=== PATIENT | female | born 1995 | race African-American/Black ===

== ENCOUNTER 2019-07-18 10:13 | Inpatient (IN) | payer MEDICARE ==
[~2019-07-18] VITALS: Ht 154.9 cm; Wt 60.8 kg
--- OUTSIDE RECORDS SUMMARY | 2019-07-18 10:17 | XMS REPORT ---
[facility] Address Unknown Phone Unavailable Care Team Providers Care Tie In Hand Name Role Phone UNKNOWN, REFFERING PP Unavailable RUTHY MÁRQUEZ Unavailable Unavailable DARRION GRACIA Unavailable Unavailable Elena PEREZ Unavailable Unavailable Payers Payer Name Policy Type Policy Number Effective Date Expiration Date Problems This patient has no known problems. Allergies, Adverse Reactions, Alerts Allergy Name Allergy Type Status Severity Reaction(s) Onset Date Inactive Date Treating Clinician Comments No Known Allergies DA Active U 2019-05-22 00:00:00 No Known Allergies DA Active U 2018-09-27 00:00:00 No Known Allergies DA Active U 2018-09-15 00:00:00 No Known Allergies DA Active U 2018-09-14 00:00:00 No Known Allergies DA Active U 2018-05-14 00:00:00 Medications This patient has no known medications. Encounters Start Date/Time End Date/Time Encounter Type Admission Type Attending Clinicians Care Facility Care Department Encounter ID 2019-06-30 18:37:00 2019-06-30 18:37:00 Emergency E [id number] 2017-10-25 15:07:00 2017-10-25 15:07:00 Emergency E DARRION GRACIA [facility] [id number] 2017-08-24 08:52:00 2017-08-24 08:52:00 Emergency E [facility] [id number] Results Test Description Test Time Test Comments Text Results Atomic Results Result Comments BASIC METABOLIC PANEL 2019-07-02 06:28:00 SODIUM (test code=NA) 141 MMOL/L 136-143 POTASSIUM (test code=K) 4.1 MMOL/L 3.5-5.1 CHLORIDE (test code=CL) 104 MMOL/L 98-107 CARBON DIOXIDE (test code=CO2) 26 mmol/L 24-31 GLUCOSE (test code=GLU) 100 mg/dL 70-104 BLOOD UREA NITROGEN (test code=BUN) 7.2 MG/DL 7.0-21.0 GLOMERULAR FILTRATION RATE (test code=GFR) >=60 max estimate >60 The estimated glomerular filtration rate is computed usingpatient race, age (>18), sex, and serum creatinine. If anyof the needed data elements are missing the Laboratory cannot compute an estimation of the glomerular filtration rate. CREATININE (test code=CREAT) 0.6 mg/dL 0.8-1.5 CALCIUM (test code=CA) 9.0 mg/dL 8.8-10.2 CREATINE KINASE (CK)2019-07-02 06:28:00* Test Item Value Reference Range Comments CREATINE KINASE (CK) (test code=CK) 523 U/L 24-204 CBC W/AUTO [id number] 05:59:00* Test Item Value Reference Range Comments WHITE BLOOD CELL (test code=WBC) 8.5 x10 3/uL 4.8-10.8 RED BLOOD CELL (test code=RBC) 3.63 x10 6/uL 4.20-5.40 HEMOGLOBIN (test code=HGB) 10.7 g/dL 14.5-20 HEMATOCRIT (test code=HCT) 32.1 % 37.0-47.0 MEAN CELL VOLUME (test code=MCV) 88.4 fL 81.0-99.0 MEAN CELL HGB (test code=MCH) 29.5 pg 27-31 MEAN CELL HGB CONCENTRATION (test code=MCHC) 33.3 G/DL 33-36.5 RED CELL DISTRIBUTION WIDTH (test code=RDW) 15.3 % 12.9-16.9 PLATELET COUNT (test code=PLT) 310 150-440 MEAN PLATELET VOLUME (test code=MPV) 10.2 fL 8.9-12.4 NEUTROPHIL % (test code=NT%) 51.5 % 42.2-75.2 LYMPHOCYTE % (test code=LY%) 38.4 % 20.5-51.1 MONOCYTE % (test code=MO%) 8.3 % 1.7-9.3 EOSINOPHIL % (test code=EO%) 0.7 % 0.0-7.0 BASOPHIL % (test code=BA%) 0.4 % 0-2.5 NEUTROPHIL # (test code=NT#) 4.37 x10 3/uL 1.80-7.70 LYMPHOCYTE # (test code=LY#) 3.26 x10 3/uL 1.00-4.80 MONOCYTE # (test code=MO#) 0.70 x10 3/uL 0.00-0.80 EOSINOPHIL # (test code=EO#) 0.06 x10 3/uL 0.00-0.45 BASOPHIL # (test code=BA#) 0.03 x10 3/uL 0.0-0.20 PARATHYROID [id number] 16:45:00* Test Item Value Reference Range Comments PARATHYROID HORMONE (test code=PTH) 24 pg/mL 15-65 LACTIC [id number] 12:21:00* Test Item Value Reference Range Comments LACTIC ACID (test code=LACT) 23.8 mg/dL 4.5-18.0 Critical Value reported toFirst Name:YAHIR Last Name:LUISKIM READ BACK AND VERIFIEDby PLaloLABLaloAT, on 07/01/19, @ 1221. COMPREHENSIVE METABOLIC [id number] 12:21:00* Test Item Value Reference Range Comments SODIUM (test code=NA) 140 MMOL/L 136-143 POTASSIUM (test code=K) 3.3 MMOL/L 3.5-5.1 CHLORIDE (test code=CL) 98 MMOL/L 98-107 CARBON DIOXIDE (test code=CO2) 24 mmol/L 24-31 GLUCOSE (test code=GLU) 147 mg/dL 70-104 BLOOD UREA NITROGEN (test code=BUN) 17.2 MG/DL 7.0-21.0 GLOMERULAR FILTRATION RATE (test code=GFR) 59 >60 The estimated glomerular filtration rate is computed usingpatient race, age (>18), sex, and serum creatinine. If anyof the needed data elements are missing the Laboratory cannot compute an estimation of the glomerular filtration rate. CREATININE (test code=CREAT) 1.4 mg/dL 0.8-1.5 TOTAL PROTEIN (test code=PROT) 7.2 g/dL 6.3-8.3 ALBUMIN (test code=ALB) 4.1 G/DL 3.5-5.0 CALCIUM (test code=CA) 9.1 mg/dL 8.8-10.2 BILIRUBIN TOTAL (test code=BILT) 0.6 mg/dL 0.2-1.0 SGOT/AST (test code=AST) 22 IU/L 10-34 SGPT/ALT (test code=ALT) 15 U/L 10-36 ALKALINE PHOSPHATASE (test code=ALKP) 75 U/L 32-104 [id number] 12:20:00* Test Item Value Reference Range Comments PHOSPHOROUS (test code=PHOS) 3.2 mg/dL 2.7-4.5 CBC W/AUTO [id number] 11:54:00* Test Item Value Reference Range Comments WHITE BLOOD CELL (test code=WBC) 12.7 x10 3/uL 4.8-10.8 RED BLOOD CELL (test code=RBC) 3.74 x10 6/uL 4.20-5.40 HEMOGLOBIN (test code=HGB) 10.9 g/dL 14.5-20 HEMATOCRIT (test code=HCT) 32.7 % 37.0-47.0 MEAN CELL VOLUME (test code=MCV) 87.4 fL 81.0-99.0 MEAN CELL HGB (test code=MCH) 29.1 pg 27-31 MEAN CELL HGB CONCENTRATION (test code=MCHC) 33.3 G/DL 33-36.5 RED CELL DISTRIBUTION WIDTH (test code=RDW) 15.3 % 12.9-16.9 PLATELET COUNT (test code=PLT) 316 150-440 MEAN PLATELET VOLUME (test code=MPV) 9.8 fL 8.9-12.4 NEUTROPHIL % (test code=NT%) 75.8 % 42.2-75.2 LYMPHOCYTE % (test code=LY%) 14.1 % 20.5-51.1 MONOCYTE % (test code=MO%) 9.4 % 1.7-9.3 EOSINOPHIL % (test code=EO%) 0.1 % 0.0-7.0 BASOPHIL % (test code=BA%) 0.2 % 0-2.5 NEUTROPHIL # (test code=NT#) 9.65 x10 3/uL 1.80-7.70 LYMPHOCYTE # (test code=LY#) 1.79 x10 3/uL 1.00-4.80 MONOCYTE # (test code=MO#) 1.20 x10 3/uL 0.00-0.80 EOSINOPHIL # (test code=EO#) 0.01 x10 3/uL 0.00-0.45 BASOPHIL # (test code=BA#) 0.02 x10 3/uL 0.0-0.20 - CT ABD PELVIS W/O [id number] 04:48:00Patient Name: CLEVE ALTMAN Unit No: [id number] EXAMS: CPT CODE: [id number] CT ABD PELVIS W/O CONT 29523 EXAM: - CT ABD PELVIS W/O CONT HISTORY: 23 years -old Female with sepsis TECHNIQUE: Contrast - No IV contrast was given. No oral contrast was given Noncontrast phase - abdomen and pelvis including all of kidneys Reconstructions - coronal and sagittal planes Automated exposure reduction (Auto mA/Smart mA) was utilized in compliance with ACR [employer] COMPARISON: 05/22/2019 FINDINGS: Statements: Lack of intravenous contrast compromises evaluation of abdominopelvic organs and vasculature. Lack of oral contrast compromises evaluation of bowel. Thoracic: Included images of the lower chest demonstrate no abnormalities. Hepatobiliary: The liver is normal without focal lesion. Cholecystectomy clips are present. No biliary dilation. Pancreas: Normal. Spleen: Normal. Adrenals: N ormal. Genitourinary: The kidneys are normal. There is no evidenc e of hydronephrosis of either kidney. There is no evidence of renal calculus. Evaluation of the bladder is limited, but no obvious bladder a bnormality is present. Gastrointestinal: No bowel obstruction or p erienteric inflammation. The appendix is normal. Vascular: T he aorta is grossly normal in appearance. Bones/Soft Tiss ues: No acute osseous findings. No ventral hernias. Peritoneum/Oth er: No extraluminal air. No extraluminal fluid. IMPRESSION: 1. No obstructing renal or ureteral calculi. 2. Prior ch olecystectomy. 3. Normal appendix. No evidence of bowel obstruction. No other acute abnormalities. Name: CLEVE ALTMAN [facility] Phys: Kristyn Ireland MD [address] : 1995 Age: 23 Sex: F [place] [id number] Loc: P.ERS Exam Date: 07/01/2019 Status: REG ER PH: FAX: PAGE 1 Signed Report (CO NTINUED) Patient Name: CLEVE ALTMAN Unit No: [id number] EXAMS: CPT CODE: [id number] CT ABD PELVIS W/O CONT 43620 <Continued> at 0448 Reported and signed by: BLAIR HERMAN M.D. CC: Kristyn Marin MD Technologist: Dwight Lynn CTDI: DLP: Trscr Dt/Tm: 07/01/2019 (044) by:[email or web address] Printed Date/Time: 07/01/2019 (0450) Name: CLEVE ALTMAN [facility] Phys: Kristyn Ireland MD [address] : 1995 Age: 23 Sex: [place] [address] Loc: P.ERS Exam Date: 07/01/2019 Status: REG ER PH: FAX: PAGE 2 Signed Report - XR CHEST 2 [id number] 03:38:00 Patient Name: CLEVE ALTMAN Unit No: [id number] EXAMS : CPT CODE: [id number] XR CHES T 2 V 23974 HISTORY: Sepsis Location: C3 COMPARISON:None FINDINGS: 2 views of the chest are provided. Heart size and vascularity are within norm al limits. The lungs are clear of focal consolidation. No effusion, pneumothorax, or acute osseous abnormality. IMPRESSION: 1. No focal consolidation. No other acute abnormalities. at 0338 Reported and signed by: BLAIR HERMAN M.D. CC: Kristyn Marin MD Technologist: Dwight Lynn Fluoro Time: DAP (Gy m2): Air Kerma (mGy): Trscr Dt/Tm: 07/01/2019 (033) by: [email or web address] Printed Date/Time: 07/01/2019 (0341) Name: CLEVE ALTMAN [facility] Phys: Kristyn Ireland MD [address] : 1995 Age: 23 Sex: F [place] [address] Loc: P.ERS Exam Date: 07/01/2019 Status: REG ER PH: FAX: PAGE 1 Signed Report URINALYSIS COMPLETE 2019-07-01 01:59:00* Test Item Value Reference Range Comments UA COLOR (test code=COLU) YELLOW DISCRIPT YELLOW UA APPEARANCE (test code=APPU) CLEAR DISCRIPT CLEAR UA GLUCOSE DIPSTICK (test code=DGLUU) NEGATIVE mg/dL NEGATIVE UA BILIRUBIN DIPSTICK (test code=BILU) NEGATIVE NEGATIVE UA KETONE DIPSTICK (test code=KETU) NEGATIVE mg/dL NEGATIVE UA SPECIFIC GRAVITY (test code=SGU) >=1.030 1.005-1.030 UA BLOOD DIPSTICK (test code=SARIAH) LARGE NEGATIVE UA PH DIPSTICK (test code=ERICH) 5.0 5.0-9.0 UA PROTEIN DIPSTICK (test code=PROU) 100 mg/dL NEGATIVE UA UROBILINOGEN DIPSTICK (test code=URO) 0.2 mg/dL 0.2-1.0 UA NITRITE DIPSTICK (test code=KERMIT) NEGATIVE NEGATIVE UA LEUKOCYTE ESTERASE DIPSTICK (test code=LEUU) NEGATIVE NEGATIVE UA [id number] 01:59:00* Test Item Value Reference Range Comments UA WBC (test code=WBCU) 6-10 #WBC/HPF 0-2 UA RBC (test code=RBCU) 20-30 #RBC/HPF 0-2 UA BACTERIA (test code=BACU) 4+ /HPF NONE-TRACE UA SQUAMOUS CELLS (test code=SQU) 3+ /LPF NONE-TRACE UA HYALINE CAST (test code=HYALU) 3-5 /LPF NONE SEEN UA MUCUS (test code=MUCU) 4+ /LPF NONE SEEN URINALYSIS [id number] 01:55:00* Test Item Value Reference Range Comments UA COLOR (test code=COLU) YELLOW DISCRIPT YELLOW UA APPEARANCE (test code=APPU) CLEAR DISCRIPT CLEAR UA GLUCOSE DIPSTICK (test code=DGLUU) NEGATIVE mg/dL NEGATIVE UA BILIRUBIN DIPSTICK (test code=BILU) NEGATIVE NEGATIVE UA KETONE DIPSTICK (test code=KETU) NEGATIVE mg/dL NEGATIVE UA SPECIFIC GRAVITY (test code=SGU) >=1.030 1.005-1.030 UA BLOOD DIPSTICK (test code=SARIAH) LARGE NEGATIVE UA PH DIPSTICK (test code=ERICH) 5.0 5.0-9.0 UA PROTEIN DIPSTICK (test code=PROU) 100 mg/dL NEGATIVE UA UROBILINOGEN DIPSTICK (test code=URO) 0.2 mg/dL 0.2-1.0 UA NITRITE DIPSTICK (test code=KERMIT) NEGATIVE NEGATIVE UA LEUKOCYTE ESTERASE DIPSTICK (test code=LEUU) NEGATIVE NEGATIVE UA [id number] 01:55:00* Test Item Value Reference Range Comments UA WBC (test code=WBCU) #WBC/HPF 0-2 UA RBC (test code=RBCU) #RBC/HPF 0-2 UA BACTERIA (test code=BACU) /HPF NONE-TRACE UA SQUAMOUS CELLS (test code=SQU) /LPF NONE-TRACE URINALYSIS [id number] 01:55:00* Test Item Value Reference Range Comments UA COLOR (test code=COLU) YELLOW DISCRIPT YELLOW UA APPEARANCE (test code=APPU) CLEAR DISCRIPT CLEAR UA GLUCOSE DIPSTICK (test code=DGLUU) NEGATIVE mg/dL NEGATIVE UA BILIRUBIN DIPSTICK (test code=BILU) NEGATIVE NEGATIVE UA KETONE DIPSTICK (test code=KETU) NEGATIVE mg/dL NEGATIVE UA SPECIFIC GRAVITY (test code=SGU) >=1.030 1.005-1.030 UA BLOOD DIPSTICK (test code=SARIAH) LARGE NEGATIVE UA PH DIPSTICK (test code=ERICH) 5.0 5.0-9.0 UA PROTEIN DIPSTICK (test code=PROU) 100 mg/dL NEGATIVE UA UROBILINOGEN DIPSTICK (test code=URO) 0.2 mg/dL 0.2-1.0 UA NITRITE DIPSTICK (test code=KERMIT) NEGATIVE NEGATIVE UA LEUKOCYTE ESTERASE DIPSTICK (test code=LEUU) NEGATIVE NEGATIVE UA [id number] 01:55:00* Test Item Value Reference Range Comments UA WBC (test code=WBCU) #WBC/HPF 0-2 UA RBC (test code=RBCU) #RBC/HPF 0-2 UA BACTERIA (test code=BACU) /HPF NONE-TRACE UA SQUAMOUS CELLS (test code=SQU) /LPF NONE-TRACE PROTHROMBIN [id number] 00:10:00* Test Item Value Reference Range Comments PROTHROMBIN TIME PATIENT (test code=PTP) 12.4 secs 10.4-12.4 IS PATIENT ON ANTICOAGULANTS ? NINTERNATIONAL NORMAL [id number] 00:10:00* Test Item Value Reference Range Comments INTERNATIONAL NORMAL RATIO (test code=INR) 1.12 The INR is to be used only for monitoring oral anticoagulanttherapy. INDICATION INR VALUE 1. Prophylaxis including high risk surgery 2.0 - 2.52. Deep venous thrombosis. Pulmonary embolism. Atrial fibrillation or bioprosthetic heart valves 2.0 - 3.03. Mechanical heart valves or recurrent systemic embolism. 3.0 - 3.5 IS PATIENT ON ANTICOAGULANTS ? NTHROMBOPLASTIN TIME [id number] 00:10:00* Test Item Value Reference Range Comments THROMBOPLASTIN TIME PARTIAL (test code=PTT) 31.1 secs 22-38 IS PATIENT ON ANTICOAGULANTS ? NLACTIC ACID [id number] 23:04:00* Test Item Value Reference Range Comments LACTIC ACID POC (test code=LACTP) 6.65 MMOL/L 0.90-1.70 COMPREHENSIVE METABOLIC [id number] 22:46:00* Test Item Value Reference Range Comments SODIUM (test code=NA) 137 mEq/L 135-145 POTASSIUM (test code=K) 3.6 mEq/L 3.5-5.0 CHLORIDE (test code=CL) 86 mEq/L 100-115 CARBON DIOXIDE (test code=CO2) 21 mEq/L 22-31 ANION GAP (test code=GAP) 33.20 10-20 GLUCOSE (test code=GLU) 236 mg/dL 65-110 BLOOD UREA NITROGEN (test code=BUN) 28 mg/dL 7-18 GLOMERULAR FILTRATION RATE (test code=GFR) 12 ml/min >60 CREATININE (test code=CREAT) 5.1 mg/dL 0.5-1.0 TOTAL PROTEIN (test code=PROT) 11.5 gm/dL 6.3-8.2 RESULTS CALLED TO ROMANA AIKEN READ BACK & CONFIRMED? YBY F.LAB.STS 06/30/19 2246 ALBUMIN (test code=ALB) 6.3 gm/dL 3.4-4.8 CALCIUM (test code=CA) 11.7 mg/dL 8.4-10.2 BILIRUBIN TOTAL (test code=BILT) 1.2 mg/dL 0.2-1.0 SGOT/AST (test code=AST) 37 units/L 15-37 SGPT/ALT (test code=ALT) 37 units/L 12-78 ALKALINE PHOSPHATASE TOTAL (test code=ALKP) 127 units/L 46-116 [id number] 22:46:00* Test Item Value Reference Range Comments AMYLASE (test code=MATTIE) 148 units/L 30-110 [id number] 22:46:00* Test Item Value Reference Range Comments LIPASE (test code=LIP) 131 units/L 73-393 HCG [id number] 22:21:00* Test Item Value Reference Range Comments HCG SERUM (test code=HCG) <1 INTERPRETATION:VALUES BETWEEN 15-20 milliInternational units/mL NEED TO BERETESTED WITHIN 48 HOURS. All units for these ranges are in milliInternationalunits/mL0-1 WK AFTER CONCEPTION 0-50 1-2 WKS AFTER CONCEPTION 40-3002-3 WKS AFTER CONCEPTION 100-1,0003-4 WKS AFTER CONCEPTION 500-6,0001-2 MONTHS AFTER CONCEPTION 5,000-200,0002-3 MONTHS AFTER CONCEPTION 10,000-100,0002ND TRIMESTER 3,000-50,0003RD TRIMESTER 1,000-50,000 SPECIMENS WITH AN HCG LEVEL FROM 0-6 milliInternationalunits/mL SHOULD BE CONSIDERED NEGATIVE CBC W/AUTO [id number] 22:14:00* Test Item Value Reference Range Comments WHITE BLOOD CELL (test code=WBC) 17.1 K/mm3 6.6-12.1 RED BLOOD CELL (test code=RBC) 5.39 M/mm3 3.45-5.01 HEMOGLOBIN (test code=HGB) 15.5 g/dL 10.7-13.9 HEMATOCRIT (test code=HCT) 47.0 % 32.1-42.1 MEAN CELL VOLUME (test code=MCV) 87 fL 84.1-94.8 MEAN CELL HGB (test code=MCH) 28.8 pg 27-35 MEAN CELL HGB CONCETRATION (test code=MCHC) 33.0 gm/dL 32.2-34.1 RED CELL DISTRIBUTION WIDTH (test code=RDW) 15.3 % 12.4-16.5 PLATELET COUNT (test code=PLT) 524 K/mm3 133-385 IMMATURE PLATELET FRACTION (test code=IPF) 0.0 % 0.0-10.8 MEAN PLATELET VOLUME (test code=MPV) 10.5 fl 9.1-12.7 NEUTROPHIL % (test code=NT%) 86.6 % 56.5-79.4 LYMPHOCYTE % (test code=LY%) 6.8 % 14.3-34.3 MONOCYTE % (test code=MO%) 5.0 % 5.1-10.4 EOSINOPHIL % (test code=EO%) 0.0 % 0.1-3.0 BASOPHIL % (test code=BA%) 0.4 % 0.1-1.0 NEUTROPHIL # (test code=NT#) 14.8 K/mm3 LYMPHOCYTE # (test code=LY#) 1.2 K/mm3 MONOCYTE # (test code=MO#) 0.9 K/mm3 EOSINOPHIL # (test code=EO#) 0 K/mm3 BASOPHIL # (test code=BA#) 0.1 K/mm3 RBC MORPHOLOGY REQUIRED (test code=RBCM) NORMAL NORMAL PLATELET MORPHOLOGY REQUIRED (test code=PLTMR) NORMAL NORMAL [id number] 22:14:00* Test Item Value Reference Range Comments ALCOHOL (test code=ALC) <3 mg/dL < 3 THIS RESULT IS FOR MEDICAL PURPOSES ONLY The pharmacological response to blood alcohol levels mayvary from individual to individual. Signs of intoxicationcan be observed at levels of 50-100 mg/dL BASIC METABOLIC [id number] 07:05:00* Test Item Value Reference Range Comments SODIUM (test code=NA) 133 mmol/L 135-145 POTASSIUM (test code=K) 3.8 mmol/L 3.6-5.0 CHLORIDE (test code=CL) 91 mmol/L 101-111 CARBON DIOXIDE (test code=CO2) 27 mmol/L 21-31 GLUCOSE (test code=GLU) 92 mg/dl 70-100 BLOOD UREA NITROGEN (test code=BUN) 37 mg/dl 6-20 GLOMERULAR FILTRATION RATE (test code=GFR) 21 >60 The estimated glomerular filtration rate is computed usingpatient race, age (>18), sex, and serum creatinine. If anyof the needed data elements are missing the Laboratory cannot compute an estimation of the glomerular filtration rate. CREATININE (test code=CREAT) 3.36 mg/dL 0.44-1.03 CALCIUM (test code=CA) 9.4 mg/dL 8.5-10.5 EXTRA PURPLE TUBE COLLECTEDTHYROID STIMULATING [id number] 07:05:00* Test Item Value Reference Range Comments THYROID STIMULATING HORMONE (test code=TSH) 2.038 uIU/ml 0.450-5.330 EXTRA PURPLE TUBE COLLECTEDCREATINE KINASE (CK)2019-05-23 06:56:00* Test Item Value Reference Range Comments CREATINE KINASE (CK) (test code=CK) 238 U/L 0-210 Critical Value reported toFirst Name:MCKENZIE Last Name:ST MEDLEYBRANDYN READ BACK AND VERIFIEDby N.LAB., on 05/23/19, @ 0656. per rn yeung to do with am labs.EXTRA PURPLE TUBE COLLECTEDBASIC METABOLIC PANEL 2019-05-23 06:48:00* Test Item Value Reference Range Comments SODIUM (test code=NA) 133 mmol/L 135-145 POTASSIUM (test code=K) 3.8 mmol/L 3.6-5.0 CHLORIDE (test code=CL) 91 mmol/L 101-111 CARBON DIOXIDE (test code=CO2) 27 mmol/L 21-31 GLUCOSE (test code=GLU) 92 mg/dl 70-100 BLOOD UREA NITROGEN (test code=BUN) 37 mg/dl 6-20 GLOMERULAR FILTRATION RATE (test code=GFR) 21 >60 The estimated glomerular filtration rate is computed usingpatient race, age (>18), sex, and serum creatinine. If anyof the needed data elements are missing the Laboratory cannot compute an estimation of the glomerular filtration rate. CREATININE (test code=CREAT) 3.36 mg/dL 0.44-1.03 CALCIUM (test code=CA) 9.4 mg/dL 8.5-10.5 EXTRA PURPLE TUBE COLLECTEDTHYROID STIMULATING [id number] 06:48:00* Test Item Value Reference Range Comments THYROID STIMULATING HORMONE (test code=TSH) uIU/ml 0.450-5.330 EXTRA PURPLE TUBE COLLECTEDDRUGS OF ABUSE SCREEN [id number] 05:14:00* Test Item Value Reference Range Comments UR COCAINE (test code=COCAU) NEGATIVE NEGATIVE This is a toxicology qualitative screening test only. Ifconfirmatory testing is desired please request drug screenconfirmation. These results are unconfirmed and should beused only for medical purposes. Cut-off concentration for Cocaine is 300 ng/mLRecommended screening cut-off concentrations by thebstance Abuse and Mental Health Services Administration. UR CANABINOIDS (test code=CANU) POSITIVE NEGATIVE This is a toxicology qualitative screening test only. Ifconfirmatory testing is desired please request drug screenconfirmation. These results are unconfirmed and should beused only for medical purposes. Cut-off concentration for THC is 50 ng/mLRecommended screening cut-off concentrations by thebstance Abuse and Mental Health Services Administration. UR AMPHETAMINE (test code=AMPHU) NEGATIVE NEGATIVE The ingestion of natural herbal and plant productscontaining Ephedra/Ephedra-Metabolites can produce in urineone or more substances capable of cross-reacting withAmphetamine/Methamphetamine immunoassays. This testprovides a preliminary result only. A more specificalternative chemical method must be used to obtain aconfirmed analytical result. This is a toxicology qualitative screening test only. Ifconfirmatory testing is desired please request drug screenconfirmation. These results are unconfirmed and should beused only for medical purposes. Cut- off concentration for Amphetamines is 1000 ng/mLRecommended screening cut-off concentrations by theSubstance Abuse and Mental Health Services Administration. UR BARBITURATE (test code=BARBQLU) NEGATIVE NEGATIVE This is a toxicology qualitative screening test only. Ifconfirmatory testing is desired please request drug screenconfirmation. These results are unconfirmed and should beused only for medical purposes. Cut-off concentration for Barbiturates is 200 ng/mLRecommended screening cut-off concentrations by thebstance Abuse and Mental Health Services Administration. UR BENZODIAZEPINE (test code=BENZU) NEGATIVE NEGATIVE This is a toxicology qualitative screening test only. Ifconfirmatory testing is desired please request drug screenconfirmation. These results are unconfirmed and should beused only for medical purposes. Cut-off concentration for Benzodiazepines is 200 ng/mLRecommended screening cut-off concentrations by the[facility]ce Abuse and Mental Health Services Administration. UR OPIATES QUAL (test code=OPIAQLU) POSITIVE NEGATIVE This is a toxicology qualitative screening test only. Ifconfirmatory testing is desired please request drug screenconfirmation. These results are unconfirmed and should beused only for medical purposes. Cut-off concentration for Opiates is 300 ng/mLRecommended screening cut-off concentrations by theLo[facility] Hospitalce Abuse and Mental Health Services Administration. UR PHENCYCLIDINE (PCP) (test code=PHENCU) NEGATIVE NEGATIVE This is a toxicology qualitative screening test only. Ifconfirmatory testing is desired please request drug screenconfirmation. These results are unconfirmed and should beused only for medical purposes. Cut-off concentration for PCP is 25 ng/mLRecommended screening cut-off concentrations by theLo[facility] Hospitalce Abuse and Mental Health Services Administration. - CT ABD PELVIS W/O [id number] 19:08:00Patient Name: CLEVE ALTMAN Unit No: [id number] EXAMS: CPT: [id number] CT ABD PELVIS W/O CONT 17224 CT ABDOMEN AND PELVIS Stone protocol: Multiplanar examination of the abdomen and pelvis was performed without intravenous or gastrointestinal contrast. HISTORY PROVIDED: Back pain dysuria abdominal pain COMPARISON: Ultrasound abdomen April 07, [address] abdomen September 29, 2015 FINDINGS: Lung bases are clear. Limited unopacified appearance of liver does not show definite liver mass or intrahepatic bile duct dilatation. Gallbladder has been removed. Spleen is normal in size. Pancreas does not show evidence of calcification. The intestinal gas pattern is normal. There is no sign of obstruction. There is no free air. There is no free fluid. Right kidney demonstrates no evidence of renal stone. Right renal pelvis is not dilated. Right ureter demonstrates no evidence of stone or dilatation. Left kidney demonstrates no evidence of renal stone. Left renal pelvis is not dilated. Left ureter demonstrates no evidence of stone or dilatation. The examination is limited in other respects due to the absence of gastrointestinal and intravenous contrast. Illness or injury of the abdomen requires intravenous and gastrointestinal contrast for a complete study. CONCLUSION: Normal exam Radiation dose optimization was achieved by protocols in accordance with standard of practice, department policies and [facility] acturer's recommendations with one or more of the following: Automated exp osure control, adjustment of KVP and MAS by age and weight, iterative reconstruction technique. DLP: 200 mGy/cm Name: CLEVE ALTMAN [facility] Phys: Ash [address] : 1995 Age: 23 Sex: F [place] [id number] Loc: N.ERS Exam Date: 05/22/2019 Status : PRE ER PH: FAX: PAGE 1 Sign ed Report (CONTINUED) Patient Name: CLEVE ALTMAN Unit No: [id number] EXAMS: CPT: [id number] CT ABD PELVIS W/O CONT 74 176 <Continued> at 1908 Reported and signed by: Magdaleno Dawn MD CC: Ash Tian DO Technologist: Gwen Ulrich CTDI: 4.05 DLP: 200.85 Trscr Dt/Tm: 05/22/2019 (1907) by:Vipul Orig Print D/T: S: 05/22/2019 (1910) BATCH NO: N/A Name: CLEVE ALTMAN [facility] Phys: Ash Castro [address] [facility] : 1995 Age: 23 Sex: [place] [address] Loc: N.ERS Exam Date: 05/22/2019 Status: PRE ER PH: FAX: PAGE 2 Signed Report CREATINE KINASE (CK) 2019-05-22 18:46:00* Test Item Value Reference Range Comments CREATINE KINASE (CK) (test code=CK) 178 U/L 0-210 HCG SERUM [id number] 18:06:00* Test Item Value Reference Range Comments HCG SERUM QUAL (test code=HCGQL) NEGATIVE NEGATIVE This is a qualitative screening test.The quantitative Bhcg may be helpful.Weakly positive results should be repeated in 48 hours. URINALYSIS [id number] 18:01:00* Test Item Value Reference Range Comments UA COLOR (test code=COLU) YELLOW YELLOW UA APPEARANCE (test code=APPU) Cloudy CLEAR UA GLUCOSE DIPSTICK (test code=DGLUU) 1+ NEGATIVE UA BILIRUBIN DIPSTICK (test code=BILU) 1+ NEGATIVE UA KETONE DIPSTICK (test code=KETU) Trace NEGATIVE UA SPECIFIC GRAVITY (test code=SGU) 1.020 1.001-1.030 UA BLOOD DIPSTICK (test code=SARIAH) NEGATIVE NEGATIVE UA PH DIPSTICK (test code=ERICH) 5.0 5.0-9.0 UA PROTEIN DIPSTICK (test code=PROU) 2+ NEGATIVE UA UROBILINOGEN DIPSTICK (test code=URO) 4.0 <=1.0 UA NITRITE DIPSTICK (test code=KERMIT) NEGATIVE NEGATIVE UA ASCORBIC ACID DIPSTICK (test code=AAU) POSITIVE High levels of ascorbic acid may cause false negativeresults for blood, glucose & nitrite. UA LEUKOCYTE ESTERASE DIPSTICK (test code=LEUU) TRACE NEGATIVE UA WBC (test code=WBCU) 6-10 /HPF 0-5 UA RBC (test code=RBCU) 6-10 /HPF 0-5 UA EPITHELIAL CELLS (test code=EPIU) MOD /LPF NONE-FEW UA BACTERIA (test code=BACU) 1+ /HPF NONE SEEN UA CALCIUM OXALATE CRYSTALS (test code=CAOXU) FEW /HPF NONE SEEN UA HYALINE CAST (test code=HYALU) 2-5 /LPF 0-1 UA MUCUS (test code=MUCU) 1+ /LPF NONE SEEN COMPREHENSIVE METABOLIC [id number] 17:42:00* Test Item Value Reference Range Comments SODIUM (test code=NA) 136 mmol/L 135-145 POTASSIUM (test code=K) 3.5 mmol/L 3.6-5.0 CHLORIDE (test code=CL) 93 mmol/L 101-111 CARBON DIOXIDE (test code=CO2) 21 mmol/L 21-31 GLUCOSE (test code=GLU) 145 mg/dl 70-100 BLOOD UREA NITROGEN (test code=BUN) 28 mg/dl 6-20 GLOMERULAR FILTRATION RATE (test code=GFR) 15 >60 The estimated glomerular filtration rate is computed usingpatient race, age (>18), sex, and serum creatinine. If anyof the needed data elements are missing the Laboratory cannot compute an estimation of the glomerular filtration rate. CREATININE (test code=CREAT) 4.62 mg/dL 0.44-1.03 TOTAL PROTEIN (test code=PROT) 10.1 g/dL 6.7-8.2 ALBUMIN (test code=ALB) 5.9 g/dL 3.2-5.5 CALCIUM (test code=CA) 10.7 mg/dL 8.5-10.5 BILIRUBIN TOTAL (test code=BILT) 1.30 mg/dL 0.2-1.3 SGOT/AST (test code=AST) 29 U/L 10-42 SGPT/ALT (test code=ALT) 23 U/L 10-60 ALKALINE PHOSPHATASE (test code=ALKP) 81 U/L 42-121 [id number] 17:42:00* Test Item Value Reference Range Comments LIPASE (test code=LIP) 22 IU/L 22-51 CBC W/AUTO [id number] 17:36:00* Test Item Value Reference Range Comments WHITE BLOOD CELL (test code=WBC) 11.1 x10 3/uL 3.2-11.5 RED BLOOD CELL (test code=RBC) 5.00 x10(6)/m 3.70-5.10 HEMOGLOBIN (test code=HGB) 14.4 g/dL 12.0-15.0 HEMATOCRIT (test code=HCT) 42.8 % 35.7-44.8 MEAN CELL VOLUME (test code=MCV) 86 fL 80-100 MEAN CELL HGB (test code=MCH) 28.8 pg 26.2-33.8 MEAN CELL HGB CONCENTRATION (test code=MCHC) 33.6 g/dL 30.0-34.0 RED CELL DISTRIBUTION WIDTH (test code=RDW) 16.0 % 11.3-14.5 PLATELET COUNT (test code=PLT) 467 x10 3/uL 130-408 MEAN PLATELET VOLUME (test code=MPV) 7.7 fl 6.4-10.5 NEUTROPHIL % (test code=NT%) 75.2 % 40.0-70.0 LYMPHOCYTE % (test code=LY%) 16.5 % 20-40 MONOCYTE % (test code=MO%) 7.5 % 1-10 EOSINOPHIL % (test code=EO%) 0.0 % 1.0-5.0 BASOPHIL % (test code=BA%) 0.8 % 0.0-1.0 NEUTROPHIL # (test code=NT#) 8.4 x10 3/uL 1.6-7.2 LYMPHOCYTE # (test code=LY#) 1.80 x10 3/uL 1.1-2.7 MONOCYTE # (test code=MO#) 0.8 x10 3/uL 0.3-0.8 EOSINOPHIL # (test code=EO#) 0.0 x10 3/uL 0.0-0.5 BASOPHIL # (test code=BA#) 0.1 x10 3/uL 0.0-0.1 BASIC METABOLIC [id number] 05:03:00* Test Item Value Reference Range Comments SODIUM (BEAKER) (test luev=073) 139 meq/L 135-148 POTASSIUM (BEAKER) (test jqnt=515) 3.2 meq/L 3.6-5.5 CHLORIDE (BEAKER) (test yxsm=166) 104 meq/L 98-106 CO2 (BEAKER) (test nulq=501) 24 meq/L 20-29 BLOOD UREA NITROGEN (BEAKER) (test zrwf=231) 20 mg/dL 10-26 CREATININE (BEAKER) (test bpxp=421) 0.98 mg/dL 0.50-1.20 GLUCOSE RANDOM (BEAKER) (test zqns=240) 81 mg/dL 70-110 CALCIUM (BEAKER) (test cuiv=088) 8.8 mg/dL 8.5-10.5 EGFR (BEAKER) (test iubr=9400) 84 mL/min/1.73 sq m ESTIMATED GFR IS NOT ACCURATE CREATININE CLEARANCE IN PREDICTING GLOMERULAR FILTRATION RATE. ESTIMATED GFR IS NOT APPLICABLE FOR DIALYSIS PATIENTS. CBC W/PLT COUNT & AUTO [id number] 04:51:00* Test Item Value Reference Range Comments WHITE BLOOD CELL COUNT (BEAKER) (test jqaa=828) 6.8 K/ L 4.0-10.0 RED BLOOD CELL COUNT (BEAKER) (test mxeu=179) 3.94 M/ L 4.00-5.00 HEMOGLOBIN (BEAKER) (test jvka=038) 10.9 GM/DL 12.0-15.5 HEMATOCRIT (BEAKER) (test lwsu=132) 33.4 % 36.0-46.0 MEAN CORPUSCULAR VOLUME (BEAKER) (test jqvq=785) 84.8 fL 82.0-99.0 MEAN CORPUSCULAR HEMOGLOBIN (BEAKER) (test smhz=149) 27.7 pg 27.0-33.0 MEAN CORPUSCULAR HEMOGLOBIN CONC (BEAKER) (test uuap=999) 32.6 GM/DL 32.0-36.0 RED CELL DISTRIBUTION WIDTH (BEAKER) (test locx=985) 14.8 % 12.0-15.0 PLATELET COUNT (BEAKER) (test yuxy=946) 324 K/CU MM 150-430 MEAN PLATELET VOLUME (BEAKER) (test snsf=829) 9.9 fL 6.0-11.5 NUCLEATED RED BLOOD CELLS (BEAKER) (test ajyb=871) 0 /100 WBC 0-0 NEUTROPHILS RELATIVE PERCENT (BEAKER) (test xskb=872) 45 % LYMPHOCYTES RELATIVE PERCENT (BEAKER) (test tgvl=732) 43 % MONOCYTES RELATIVE PERCENT (BEAKER) (test mngc=950) 10 % EOSINOPHILS RELATIVE PERCENT (BEAKER) (test hlek=543) 1 % BASOPHILS RELATIVE PERCENT (BEAKER) (test hhnr=900) 1 % NEUTROPHILS ABSOLUTE COUNT (BEAKER) (test qsnu=400) 3.04 K/ L 1.80-8.00 LYMPHOCYTES ABSOLUTE COUNT (BEAKER) (test zlbe=315) 2.93 K/ L 1.48-4.50 MONOCYTES ABSOLUTE COUNT (BEAKER) (test utng=824) 0.69 K/ L 0.00-1.30 EOSINOPHILS ABSOLUTE COUNT (BEAKER) (test bttp=823) 0.07 K/ L 0.00-0.50 BASOPHILS ABSOLUTE COUNT (BEAKER) (test urie=481) 0.05 K/ L 0.00-0.20 IMMATURE GRANULOCYTES-RELATIVE PERCENT (BEAKER) (test zgwh=3446) 0 % 0-0 U/S, RENAL, [id number] 18:26:00Reason for exam:->NAUSEAReason for exam:- >EMESISFINAL REPORT History: Nausea, emesis. FINDINGS: Real-time sonographic examination reveals normal size kidneys measuring up to 10.0 x 3.9 x 5.7 and 9.7 x 4.5 x 6.1 cm in greatest dimensions on the right and left, respectively. Renal echogenicity is normal. There are no sonographically detectable masses, cysts, stones or evidence for obstruction. No cortical thickness measures 12 mm on the right and 18 mm on the left. No perinephric fluid collections. Urinary bladder is unremarkable. IMPRESSION: 1. Normal renal sonogram. Signed: Ricky Li MDReport Verified Date/Time: 05/01/2019 18:26:47 Reading Location: [facility] Diagnostic Imaging Reading Room - [place] [address] [place], [place] [id number] 18:07:00* Test Item Value Reference Range Comments CREATININE URINE (BEAKER) (test fmiz=983) 807.0 mg/dL Reference Range: No NormalsEOSINOPHIL SMEAR, [id number] 17:09:00* Test Item Value Reference Range Comments EOSINOPHIL SMEAR, URINE (BEAKER) (test lnda=0719) No EOS seen No EOS seen OSMOLALITY, [id number] 16:04:00* Test Item Value Reference Range Comments OSMOLALITY, SERUM (BEAKER) (test onti=372) 287 mOsm/kg 275-295 CT, [id number] 14:49:00Reason for exam:->Abdominal Pain no OralIs the patient ?->UnknownWhat is the patient's sedation requirement?->No SedationFINAL REPORT CT ABDOMEN AND PELVIS WITHOUT IV CONTRAST Comparison exam: 05/19/2017 History provided: Abdominal pain, vomiting, acute renal failure TECHNIQUE: Spiral CT cuts were performed through the abdomen and pelvis with no contrast administered. FINDINGS: Lung bases unremarkable. Normal unenhanced appearance of the liver, spleen, and pancreas. Cholecystectomy clips are present. Kidneys normal in size with no calculi or hydronephrosis. Normal caliber abdominal aorta. No dilated bowel loops. Normal-appearing appendix. No pelvic mass, pelvic fluid collection, or pelvic inflammation. No free air or free fluid within the peritoneal cavity. IMPRESSION: Normal noncontrast evaluation. COMMENT: This exam was performed according to our departmental dose-optimization program, which includes automated exposure control, adjustment of the mA and/or kV according to patient size and/or use of iterative reconstruction technique. Signed: Kathy Beck MDReport Verified Date/Time: 05/01/2019 14:49:21 Reading Location: [facility] Diagnostic Imaging Reading Room - [facility] [phone] UM, RANDOM [id number] 14:48:00* Test Item Value Reference Range Comments SODIUM URINE (BEAKER) (test bqco=923) 21 meq/L Reference Range: No NormalsOSMOLALITY, [id number] 14:33:00* Test Item Value Reference Range Comments OSMOLALITY URINE (BEAKER) (test yolv=902) 368 mOsm/kg 40-1,400 289/289 COMPREHENSIVE METABOLIC [id number] 13:56:00* Test Item Value Reference Range Comments TOTAL PROTEIN (BEAKER) (test arar=780) 9.9 gm/dL 6.0-8.5 ALBUMIN (BEAKER) (test pnaw=3296) 5.6 g/dL 3.5-5.0 ALKALINE PHOSPHATASE (BEAKER) (test bcon=772) 97 U/L 30-115 BILIRUBIN TOTAL (BEAKER) (test nwrx=834) 0.9 mg/dL 0.1-1.2 SODIUM (BEAKER) (test etgb=685) 136 meq/L 135-148 POTASSIUM (BEAKER) (test bayo=506) 3.3 meq/L 3.6-5.5 CHLORIDE (BEAKER) (test mzhz=839) 93 meq/L 98-106 CO2 (BEAKER) (test jwco=313) 20 meq/L 20-29 BLOOD UREA NITROGEN (BEAKER) (test xukr=904) 30 mg/dL 10-26 CREATININE (BEAKER) (test ilqm=022) 3.08 mg/dL 0.50-1.20 GLUCOSE RANDOM (BEAKER) (test hfmy=005) 130 mg/dL 70-110 CALCIUM (BEAKER) (test wbkj=006) 10.8 mg/dL 8.5-10.5 AST (SGOT) (BEAKER) (test viri=599) 30 U/L 5-40 ALT (SGPT) (BEAKER) (test guhm=383) 30 U/L 5-50 EGFR (BEAKER) (test glvo=9875) 22 mL/min/1.73 sq m ESTIMATED GFR IS NOT ACCURATE CREATININE CLEARANCE IN PREDICTING GLOMERULAR FILTRATION RATE. ESTIMATED GFR IS NOT APPLICABLE FOR DIALYSIS PATIENTS. [id number] 13:54:00* Test Item Value Reference Range Comments LIPASE (BEAKER) (test rgov=241) 9 U/L 6-51 URINALYSIS W/ [id number] 13:44:00* Test Item Value Reference Range Comments COLOR (BEAKER) (test lhbh=981) Yellow CLARITY (BEAKER) (test noim=789) Hazy SPECIFIC GRAVITY UA (BEAKER) (test utda=573) >= 1.001-1.035 PH UA (BEAKER) (test cfnp=802) 5.0 5.0-8.0 PROTEIN UA (BEAKER) (test qvin=668) 100 mg/dL Negative GLUCOSE UA (BEAKER) (test mkay=446) Negative Negative KETONES UA (BEAKER) (test xcgx=653) Trace Negative BILIRUBIN UA (BEAKER) (test mcfd=743) Positive Negative BLOOD UA (BEAKER) (test iouu=893) Small Negative NITRITE UA (BEAKER) (test meco=056) Negative Negative LEUKOCYTE ESTERASE UA (BEAKER) (test uktn=312) Negative Negative UROBILINOGEN UA (BEAKER) (test zfqn=512) 0.2 mg/dL 0.2-1.0 BACTERIA (BEAKER) (test amnz=601) Few MUCUS (BEAKER) (test apdz=4047) Moderate AMORPHOUS CRYSTALS (BEAKER) (test vful=4702) Few RBC UA-MANUAL (BEAKER) (test yihe=1855) 5-10 /HPF WBC UA-MANUAL (BEAKER) (test lmaw=6948) <5 /HPF SQUAMOUS EPITHELIAL MANUAL (BEAKER) (test dhrr=5667) 10-20 /HPF SOURCE(BEAKER) (test edwe=2940) SCREEN, [id number] 13:43:00* Test Item Value Reference Range Comments TEST URINE (BEAKER) (test rgnc=787) Negative CBC W/PLT COUNT & AUTO [id number] 13:40:00* Test Item Value Reference Range Comments WHITE BLOOD CELL COUNT (BEAKER) (test mkqa=787) 10.1 K/ L 4.0-10.0 RED BLOOD CELL COUNT (BEAKER) (test fogj=740) 4.99 M/ L 4.00-5.00 HEMOGLOBIN (BEAKER) (test bztf=882) 14.0 GM/DL 12.0-15.5 HEMATOCRIT (BEAKER) (test rupn=234) 41.5 % 36.0-46.0 MEAN CORPUSCULAR VOLUME (BEAKER) (test xssy=149) 83.2 fL 82.0-99.0 MEAN CORPUSCULAR HEMOGLOBIN (BEAKER) (test epdk=991) 28.1 pg 27.0-33.0 MEAN CORPUSCULAR HEMOGLOBIN CONC (BEAKER) (test yldx=736) 33.7 GM/DL 32.0-36.0 RED CELL DISTRIBUTION WIDTH (BEAKER) (test gbqz=189) 14.6 % 12.0-15.0 PLATELET COUNT (BEAKER) (test rxfs=151) 509 K/CU MM 150-430 MEAN PLATELET VOLUME (BEAKER) (test vfib=303) 9.5 fL 6.0-11.5 NUCLEATED RED BLOOD CELLS (BEAKER) (test qamm=108) 0 /100 WBC 0-0 NEUTROPHILS RELATIVE PERCENT (BEAKER) (test cjqt=710) 60 % LYMPHOCYTES RELATIVE PERCENT (BEAKER) (test mtxm=951) 30 % MONOCYTES RELATIVE PERCENT (BEAKER) (test iacm=482) 9 % EOSINOPHILS RELATIVE PERCENT (BEAKER) (test uzno=612) 0 % BASOPHILS RELATIVE PERCENT (BEAKER) (test xcha=613) 1 % NEUTROPHILS ABSOLUTE COUNT (BEAKER) (test rxrl=957) 6.07 K/ L 1.80-8.00 LYMPHOCYTES ABSOLUTE COUNT (BEAKER) (test ccqt=217) 3.07 K/ L 1.48-4.50 MONOCYTES ABSOLUTE COUNT (BEAKER) (test doak=266) 0.90 K/ L 0.00-1.30 EOSINOPHILS ABSOLUTE COUNT (BEAKER) (test tkdu=973) 0.00 K/ L 0.00-0.50 BASOPHILS ABSOLUTE COUNT (BEAKER) (test mvau=025) 0.05 K/ L 0.00-0.20 IMMATURE GRANULOCYTES-RELATIVE PERCENT (BEAKER) (test pcgn=9840) 0 % 0-0 Urinalysis [id number] 18:37:00* Test Item Value Reference Range Comments Color (test code=COLOR) Rhina Yellow,Straw,Pl yellow Clarity (test code=CLAR) Cloudy Clear Specific Prosperity (test code=SPGR) 1.031 1.001-1.035 pH (test code=PH) 6.5 5.0-9.0 Ketone (test code=KET) 15 mg/dL Negative Glucose (test code=GLUCUR) Negative mg/dL Negative Protein (test code=PROT) 75 mg/dL Negative Bilirubin (test code=BILI) See IctoTest mg/dL Negative Occult Blood (test code=UDOB) Trace Negative Urobilinogen (test code=UROB) 0.2 mg/dL 0.2-1.0 Nitrite (test code=NIT) Negative Negative Leuk Esterase (test code=LEUK) Small Negative Ictotest (test code=ICTOTEST) Confirmed Negative Negative,Confirmed Negative Micros Exam (test code=MEXAM) Indicated Epithelial Cells (test code=EPI) 6-9 /LPF 0-30 WBC, Urine (test code=UWBC) 2-5 /HPF 0-5 RBC, Urine (test code=URBC) None Seen /HPF 0-5 Amorph Deposit (test code=AMORD) Many /HPF Bacteria (test code=BACT) Moderate /HPF BHCG, Serum, [id number] 17:51:00* Test Item Value Reference Range Comments Preg Qual [Se] (test code=BSHCG) Negative Negative Comprehensive Metabolic [id number] 17:50:00* Test Item Value Reference Range Comments Sodium (test code=NA) 140 mmol/L 135-145 Potassium (test code=K) 3.5 mmol/L 3.5-5.1 Chloride (test code=CL) 98 mmol/L 98-105 Carbon Dioxide (test code=CO2) 25 mmol/L 22-29 Glucose (test code=GLU) 140 mg/dL 70-115 Blood Urea Nitrogen (test code=BUN) 13 mg/dL 6-20 Creatinine (test code=CREAT) 0.9 mg/dL 0.5-0.9 Calcium (test code=CA) 10.1 mg/dL 8.3-10.5 Prot Total (test code=TP) 8.5 g/dL 6.4-8.3 Albumin (test code=ALB) 5.0 g/dL 3.5-5.2 A/G Ratio (test code=AGRATIO) 1.4 Ratio Globulin (test code=GLOB) 3.5 2.9-3.1 Bili Total (test code=TBIL) 0.7 mg/dL 0.1-0.9 Alk Phos (test code=APHOS) 67 U/L 35-104 AST (test code=AST) 19 U/L 1-32 ALT (test code=ALT) 12 U/L 1-33 BUN/Creatinine Ratio (test code=BCRATIO) 14.4 Anion Gap (test code=AGAP) 17 mmol/L 7-16 Estimated GFR (test code=GFR) >60 mL/min/1.73m2 eGFR (estimated Glomerular Filtration Rate) is an estimated value,calculated from the patient's serum creatinine using the MDRD equation.It is NOT the patient's actual GFR. The eGFR provides a more clinicallyuseful measure of kidney disease than serum creatinine alone.This calculation takes sex and race into account, if the informationis provided. If the race is not provided, and the patient isAfrican-[place], multiply by 1.212. If sex is not provided, and thepatient is female, multiply by 0.742. Results for patients <18 years ofage have not been validated by the MDRD study and should be interpretedwith caution.eGFR Result Interpretation:eGFR > or=60 is in the Normal RangeeGFR < 60 may mean kidney diseaseeGFR < 15 may mean kidney failureRanges recommended by the National Kidney Foundat ion,http://nkdep.nih.gov [id number] 17:50:00* Test Item Value Reference Range Comments Lipase (test code=LIP) 22 U/L 13-60 CBC with [id number] 17:47:00* Test Item Value Reference Range Comments WBC (test code=WBC) 11.3 K/cumm 4.4-10.5 RBC (test code=RBC) 4.67 M/cumm 3.75-5.20 Hemoglobin (test code=HGB) 14.3 gm/dL 12.2-14.8 Hematocrit (test code=HCT) 40.2 % 36.5-44.4 MCV (test code=MCV) 86.0 fL 80-100 MCH (test code=MCH) 30.7 pg 27.0-32.5 MCHC (test code=MCHC) 35.7 g/dL 32.0-37.5 RDW (test code=RDW) 12.8 % 11.5-14.5 Platelet Count (test code=PLTCT) 467 K/cumm 140-440 MPV (test code=MPV) 9.3 fL Diff Method (test code=DIFFM) Auto Neutrophil (test code=NEUT) 86.7 % 36-70 Lymphocyte (test code=LYMPH) 8.9 % 12-44 Monocyte (test code=MONO) 3.6 % 0-11 Eosinophil (test code=EOS) 0.5 % 0-7 Basophil (test code=BASO) 0.2 % 0-2 Neutro Abs (test code=ANEUT) 9.8 K/cumm 1.6-7.4 Lymph Abs (test code=ALYMPH) 1.0 K/cumm 0.5-4.6 Scott Abs (test code=AMONO) 0.4 K/cumm 0.0-1.2 Eos Abs (test code=AEOS) 0.06 K/cumm 0.00-0.74 Baso Abs (test code=ABASO) 0.0 K/cumm 0.00-0.21 BASIC METABOLIC [id number] 10:33:00* Test Item Value Reference Range Comments SODIUM (BEAKER) (test cwsw=415) 145 meq/L 135-148 POTASSIUM (BEAKER) (test udrq=902) 3.4 meq/L 3.6-5.5 CHLORIDE (BEAKER) (test hlyw=297) 98 meq/L 98-106 CO2 (BEAKER) (test exqv=292) 27 meq/L 24-32 BLOOD UREA NITROGEN (BEAKER) (test hunn=213) 14 mg/dL 10-26 CREATININE (BEAKER) (test gwtf=353) 0.97 mg/dL 0.50-1.20 GLUCOSE RANDOM (BEAKER) (test yiha=829) 156 mg/dL 70-110 CALCIUM (BEAKER) (test lpcc=922) 10.4 mg/dL 8.5-10.5 EGFR (BEAKER) (test rgvy=4056) 86 mL/min/1.73 sq m ESTIMATED GFR IS NOT ACCURATE CREATININE CLEARANCE IN PREDICTING GLOMERULAR FILTRATION RATE. ESTIMATED GFR IS NOT APPLICABLE FOR DIALYSIS PATIENTS. [id number] 10:33:00* Test Item Value Reference Range Comments LIPASE (BEAKER) (test vhbf=656) 27 U/L 40-240 ALKALINE [id number] 10:30:00* Test Item Value Reference Range Comments ALKALINE PHOSPHATASE (BEAKER) (test ddir=183) 79 U/L 30-115 AST (SGOT)2017-05-19 10:30:00* Test Item Value Reference Range Comments AST (SGOT) (BEAKER) (test hcgo=897) 37 U/L 5-40 ALT (SGPT)2017-05-19 10:30:00* Test Item Value Reference Range Comments ALT (SGPT) (BEAKER) (test bjyu=048) 44 U/L 5-50 [id number] 10:30:00* Test Item Value Reference Range Comments AMYLASE (BEAKER) (test kcea=910) 84 U/L 30-110 URINALYSIS W/ [id number] 10:28:00* Test Item Value Reference Range Comments COLOR (BEAKER) (test jbhg=924) Becker CLARITY (BEAKER) (test qoxg=330) Slightly Cloudy SPECIFIC GRAVITY UA (BEAKER) (test qgsa=105) 1.020 1.001-1.035 PH UA (BEAKER) (test urtg=872) 6.0 5.0-8.0 PROTEIN UA (BEAKER) (test jrsh=358) 100 mg/dL Negative GLUCOSE UA (BEAKER) (test dsyw=117) Negative Negative KETONES UA (BEAKER) (test ngpa=606) 15 mg/dL Negative BILIRUBIN UA (BEAKER) (test kype=638) Positive Negative BLOOD UA (BEAKER) (test xhsl=292) Trace Negative NITRITE UA (BEAKER) (test ptqa=109) Negative Negative LEUKOCYTE ESTERASE UA (BEAKER) (test zune=657) Negative Negative UROBILINOGEN UA (BEAKER) (test lqtn=718) 1.0 mg/dL 0.2-1.0 BACTERIA (BEAKER) (test chte=619) Few MUCUS (BEAKER) (test ldis=6927) Moderate AMORPHOUS CRYSTALS (BEAKER) (test jere=3121) Moderate RBC UA-MANUAL (BEAKER) (test khfn=8440) <5 /HPF WBC UA-MANUAL (BEAKER) (test fokv=9666) <5 /HPF SQUAMOUS EPITHELIAL MANUAL (BEAKER) (test llwk=9810) <5 /HPF SOURCE(BEAKER) (test cwox=7134) CBC W/PLT COUNT & AUTO [id number] 10:26:00* Test Item Value Reference Range Comments WHITE BLOOD CELL COUNT (BEAKER) (test yviw=081) 6.6 10e3/ L 4.0-10.0 RED BLOOD CELL COUNT (BEAKER) (test mvci=631) 4.72 10e6/ L 4.00-5.00 HEMOGLOBIN (BEAKER) (test noty=828) 14.8 g/dL 12.0-15.0 HEMATOCRIT (BEAKER) (test bmej=377) 43.8 % 36.0-45.0 MEAN CORPUSCULAR VOLUME (BEAKER) (test apwh=459) 92.6 fL 82.0-99.0 MEAN CORPUSCULAR HEMOGLOBIN (BEAKER) (test ybfr=520) 31.3 pg 27.0-33.0 MEAN CORPUSCULAR HEMOGLOBIN CONC (BEAKER) (test ejvg=468) 33.8 g/dL 32.0-36.0 RED CELL DISTRIBUTION WIDTH (BEAKER) (test repl=682) 11.3 % 10.3-14.2 PLATELET COUNT (BEAKER) (test ktqu=181) 398 10e3/ L 150-430 MEAN PLATELET VOLUME (BEAKER) (test vmot=928) 7.0 fL 6.5-10.5 NEUTROPHILS RELATIVE PERCENT (BEAKER) (test wenu=475) 81 % LYMPHOCYTES RELATIVE PERCENT (BEAKER) (test njub=310) 15 % MONOCYTES RELATIVE PERCENT (BEAKER) (test fuqx=354) 3 % EOSINOPHILS RELATIVE PERCENT (BEAKER) (test fkjq=563) 1 % BASOPHILS RELATIVE PERCENT (BEAKER) (test vpzu=755) 0 % NEUTROPHILS ABSOLUTE COUNT (BEAKER) (test snmd=795) 5.37 10e3/ L 1.80-8.00 LYMPHOCYTES ABSOLUTE COUNT (BEAKER) (test fuza=294) 0.99 10e3/ L 1.48-4.50 MONOCYTES ABSOLUTE COUNT (BEAKER) (test ibwq=136) 0.18 10e3/ L 0.00-1.30 EOSINOPHILS ABSOLUTE COUNT (BEAKER) (test kbhg=699) 0.05 10e3/ L 0.00-0.50 BASOPHILS ABSOLUTE COUNT (BEAKER) (test iibx=407) 0.03 10e3/ L 0.00-0.20 SCREEN, [id number] 10:21:00* Test Item Value Reference Range Comments TEST URINE (BEAKER) (test otgr=303) Negative
[2019-07-18] MEDS ORDERED: ONDANSETRON HCL INJ 2MG/ML 2ML 2 MG/ML VIAL IV STA ×2 (10:38→14:11)
[2019-07-18] MEDS ORDERED: IOPAMIDOL 370 MG/ML 200 ML INFUS..BTL INJ ONE (10:44)
[2019-07-18] MEDS ORDERED: SODIUM CHLORIDE 0.9% 1000ML 1,000 ML IV SCH ×2 (10:45→12:45)
[2019-07-18] MEDS ORDERED: MORPHINE SULFATE INJ 4 MG/ML INJ 1ML IV PRN (10:45)
[2019-07-18] MEDS ORDERED: SODIUM CHLORIDE 0.9% 50ML 0 ML ONE (10:45)
[2019-07-18] MEDS ORDERED: KETOROLAC TROMETHAMINE 30 MG/ML VIAL ONE (11:20)
[2019-07-18] MEDS ORDERED: MORPHINE SULFATE INJ 4 MG/ML INJ 1ML ONE (11:38)
--- NOTE | 2019-07-18 12:30 | NUR ---
PT RESTING, VITAL SIGNS STABLE, PT ATTEMPTING TO CALL FAMILY TO COME SHEET HEATER PTS 6 MONTH OLD BABY.
[2019-07-18 12:58] LABS: BASOPHILS % 0.3 % (0.0-1.0); HEMATOCRIT 43.7 % (34.2-44.1); HEMOGLOBIN 14.9 g/dL (12.0-16.0); LYMPHOCYTES # (AUTO) 0.8 (1.0-3.2); MEAN CORPUSCULAR HEMOGLOBIN 29.3 pg (28-32); MEAN CORPUSCULAR HGB CONC 34.1 g/dL (31-35); MONOCYTES # (AUTO) 0.4 (0.2-0.8); MONOCYTES % 3.9 % (4.4-11.3); NEUTROPHILS % 87.3 % (38.7-80.0); PLATELET COUNT 579 x10e3/uL (140-360); RED BLOOD COUNT 5.08 x10e6/uL (3.6-5.1)
--- NOTE | 2019-07-18 13:34 | Diagnostic Imaging Report ---
EXAM: CT Abdomen and Pelvis WITHOUT intravenous contrast INDICATION: Abdominal pain COMPARISON: None. TECHNIQUE: Abdomen and pelvis were scanned utilizing a multidetector helical scanner from the lung base to the pubic symphysis without administration of IV contrast. Coronal and sagittal reformations were obtained. Routine protocol was performed. Scan was performed during portal venous phase. IV CONTRAST: None ORAL CONTRAST: None RADIATION DOSE: Total DLP: 331.5 mGy*cm Dose modulation, iterative reconstruction, and/or weight based adjustment of the mA/kV was utilized to reduce the radiation dose to as low as reasonably achievable. FINDINGS: LOWER THORAX: Normal. HEPATOBILIARY: No focal liver lesion. Status post cholecystectomy. SPLEEN: No splenomegaly. PANCREAS: No focal masses or ductal dilatation. ADRENALS: No adrenal nodules. KIDNEYS/URETERS: No hydronephrosis, stones, or solid mass lesions. PELVIC ORGANS/BLADDER: Unremarkable. PERITONEUM / RETROPERITONEUM: Trace free fluid in the pelvis. LYMPH NODES: No lymphadenopathy. VESSELS: Unremarkable. GI TRACT: No abnormal bowel wall thickening. No bowel obstruction. The appendix is not well visualized, however there are no secondary inflammatory changes in the right lower quadrant to suggest appendicitis. BONES AND SOFT TISSUES: Unremarkable. IMPRESSION: No acute findings in the abdomen or pelvis. Signed by: Jadiel Reno MD on 07/18/2019 1:30 PM
--- NOTE | 2019-07-18 14:00 | NUR ---
PT TO BE ADMITTED, PT HAS A 6 MONTH BABY WITH HER AND NO POWERTRAIN ENGINEER. PT ATTEMPTING TO FIND REACTOR SERVICE OPERATOR FOR ADMISSION.
[2019-07-18] MEDS ORDERED: SODIUM CHLORIDE 0.9% 1000ML 1,000 ML ONE (14:22)
[2019-07-18] MEDS ORDERED: PROMETHAZINE 12.5MG/ NACL 0.9% 12.5 MG/50 ML BAG IV ONE (14:45)
[2019-07-18] MEDS ORDERED: PROMETHAZINE HCL (IM) 25 MG/ML VIAL ONE (14:45)
[2019-07-18] MEDS ORDERED: METOCLOPRAMIDE HCL 10 MG/2ML VIAL IV PRN (15:45)
[2019-07-18] MEDS ORDERED: DEXTROSE 50% SYRINGE 50 ML IV PRN (15:45)
[2019-07-18] MEDS ORDERED: PROMETHAZINE HCL (IM) 25 MG/ML VIAL IV PRN (15:45)
--- NOTE | 2019-07-18 15:45 | NUR ---
PTS BABIES GRANDFATHER CAME TO OFFICE EQUIPMENT MECHANIC PTS BABY. PT TO BE ADMITTED AND TRANSFERED PT AWARE OF POC
--- NOTE | 2019-07-18 15:55 | NUR ---
[facility] CALLED FOR TRANSPORT 40MIN ETA
[2019-07-18] MEDS: INSULIN REGULAR, HUMAN 100 UNIT/1 ML 3ML VIAL SQ SCH ×2 (16:30→21:00)
--- NOTE | 2019-07-18 16:44 | NUR ---
Patient arrived to the unit via EMS at this time. Patient is arousable but appears drowsy. Patient given hospital gown and oriented to the room. Call mccauley within reach. Bed is low and locked.
[2019-07-18 18:07] VITALS: BP 158/76
--- NOTE | 2019-07-18 18:29 | NUR ---
Spoke with Dr. Acosta at this time. No orders received for narcotics for pain. Dr. Acosta stated "no narcotics at all." Let the patient know. Patient is irritated. patient is staying in the shower. Has been in the shower since the arrival on the unit around 1645. PIV is wrapped for the shower. Unable to administer fluids at this time.
[2019-07-18 18:35] VITALS: BP 158/76
[2019-07-18] MEDS: SODIUM CHLORIDE 0.9% 1000ML 1,000 ML IV SCH ×2 (19:36→23:41)
[2019-07-18] MEDS: PROMETHAZINE 12.5MG/ NACL 0.9% 50 ML IV PRN (19:36)
[2019-07-18 20:32] VITALS: BP 133/90
[2019-07-18 21:11] VITALS: BP 133/90
[2019-07-18 21:15] VITALS: BP 133/90
--- NOTE | 2019-07-18 21:31 | NUR ---
Pt called at this time to notify that IV at right wrist was bleeding. IV was slightly pulled out and bleeding. IV removed without complication at this time and site wrapped with gauze and coband. EVS called to clean floor, blood found on floor on either side of bed and on the wall by the window. Pt states that the IV came out. Pt requesting ice chips and apple juice at this time. Will call DR for orders as pt is NPO. Pt showering at this time.
--- NOTE | 2019-07-18 21:38 | NUR ---
Pt checked on at this time. pt is in shower, she states that it helps her feel better. Will continue to closely monitor.
--- NOTE | 2019-07-18 21:45 | NUR ---
Dr. Acosta notified at this time that pt requesting liquids, new orders for clear liquid diet received. made aware that pt was found with IV site bleeding and blood was found in various spots around room. made aware that patient continues to request staying in the shower. New order received for 1:1 sitter at bedside at this time. Charge nurse made aware of new order.
--- NOTE | 2019-07-18 21:54 | NUR ---
Pt checked on at this time. pt continue to lay on shower seat at this time. I asked pt if she is ready to get out she states, "almost". Pt asking who she can talk to at this time about pain medication. Pt states that the phenergan did not help her abdominal pain. Pt rates her pain at this time a 10/10.
--- NOTE | 2019-07-18 22:12 | NUR ---
Pt ready to get out of shower. Pt helped to bed at this time. Pt asked about pain medication at this time. Explained to pt that the doctor has not ordered any pain medication and that we need to start an IV and restart IV fluids. Pt agreed and is resting in bed with bed in low locked position and call light is in reach.
--- NOTE | 2019-07-18 22:15 | NUR ---
Pt got out of bed immediately walked to door and is requesting ice and apple juice at this time.
--- NOTE | 2019-07-18 22:22 | NUR ---
Bobbin Hauler brought water to patient. Shower is on and patient is getting back into shower at this time.
--- NOTE | 2019-07-18 22:58 | NUR ---
Patient was in shower, floor became completely saturated and flooded into hallway. Charge nurse notified and came to the room. Patient informed that the shower is overflowing and flooding into junior. Patient assisted into bed with clean gown and warm blankets. EVS in room cleaning bathroom at this time. Pt immediately got out of bed and paced room then proceeded to the nurses station asking if she can, "walk the halls" because she "needs to get out of that space". Charge nurse present at this time and patient informed that she cannot walk around the hospital at night but can ambulate the hallway once. Ice provided to patient. Patient pacing hallway rapidly at this time with music loudly playing on her phone.
--- NOTE | 2019-07-18 23:00 | NUR ---
Patient was in the shower for the second time tonight, water is every where on the bathroom floor and water is coming out of the bathroom. Informed patient that she needs to get in the bed to rest since she's complaining that her stomach hurts. Patient eventually got in the bed and within minutes was up and started lightly jogging in the room. Questioned patient why is she slightly jogging in the room she stated, "because it helps my stomach to stop hurting", expressed to patient of my concerns of her possible falling. Patient refused to get back in bed, came to the nurses station and requested to walk the hallways, informed the patient that she should only walked on medsurg 1 due to my concerns of her falling and that we could monitor her. Patient pacing back and forth. Will continue to monitor. Director Search Marketing Strategies informed of the sitter order.
--- NOTE | 2019-07-18 23:14 | NUR ---
Followed up about sitter order with charge nurse. gate supervisor was notified.
[2019-07-18] MEDS ORDERED: FAMOTIDINE 20 MG/2 ML VIAL IV STA (23:46)
[2019-07-18 23:47] VITALS: BP 139/88
--- NOTE | 2019-07-19 00:01 | NUR ---
Patient refusing IV at this time.
--- NOTE | 2019-07-19 01:19 | NUR ---
Called to check on patient, was informed by the nurse that she was back in the shower. Primary nurse attempted to restart her iv but has to wait until she comes out of the shower.
--- NOTE | 2019-07-19 01:19 | NUR ---
Pt is in shower at this time. Pt agreeing to IV when she gets out of shower.
[2019-07-19] MEDS: LORAZEPAM INJ 2 MG/ML VIAL IV PRN ×3 (01:57→16:45)
[2019-07-19] MEDS: PROMETHAZINE 12.5MG/ NACL 0.9% 50 ML IV PRN ×2 (02:10→07:30)
--- NOTE | 2019-07-19 02:11 | NUR ---
IV started to left AC. Ativan given as ordered. Went back into room after sitting patient in bed and she is back in the shower. Pt appears drowsy. Pt informed that she needs to get back into the bed. Pt assisted to bed and IV Phenergan and fluids started. Pt immediately gets up and says she needs to use the toilet. Pt in restroom now. Pt informed that she needs to get into the bed d/t the medications putting her at risk for fall. Pt agrees and states she understands. Will continue to monitor.
--- NOTE | 2019-07-19 02:21 | NUR ---
Pt did not call nurse for assistance getting off toilet. checked on pt and she is in the shower with IV pump outside of shower getting wet. IV disconnected at this time. Pump placed in room. Charge nurse notified at this time that pt is back in shower and being noncompliant with plan of care.
--- NOTE | 2019-07-19 03:08 | NUR ---
Patient was back in the shower, lying on the shower chair asleep, woke patient up to get her in the bed, she refused to move but within got up and came to bed. She fell asleep but within minutes she was up wanting to walk the hallways. Patient went to the nurses station, walked the hallways again and finally came back to her room. Patient is questioning why I'm in the room and explained to patient that the doctor ordered a sitter and that she needed to be monitored closely. Patient went into the restroom and started drinking water from the faucet then went to the toilet and vomited. Medications was given earlier for nausea.
--- NOTE | 2019-07-19 03:59 | NUR ---
Pt sleeping in bed at this time. Respirations regular and even.
--- NOTE | 2019-07-19 06:45 | NUR ---
rounded with production supervisor off shift nurse, patient is currently lying on the bench in the shower with water all over the floor. production supervisor off shift has been cleaning up the water with extra towels and blankets and states the patient refuses to get out of the shower. this morning when the patient was found in the shower we asked her if she'd like to get in the bed now and she said she would. patient was dried off and put in fresh gown. IV patency checked, it flushed well as long as the patient would keep her arm straight. patient is very anxious and bounces while standing in place. warned patient of the dangers of keeping the floor so wet as it causing a fall hazard for her and the staff. patient agreed to lay in bed for a while. floor was cleaned up and is now dry. patient lying in bed in the lowest, locked position and call mccauley within reach.
[2019-07-19] MEDS: INSULIN REGULAR, HUMAN 100 UNIT/1 ML 3ML VIAL SQ SCH ×4 (07:30→21:00)
[2019-07-19] MEDS: SODIUM CHLORIDE 0.9% 1000ML 1,000 ML IV SCH ×2 (07:41→18:20)
[2019-07-19 07:47] LABS: BASOPHILS % 0.3 % (0.0-1.0); HEMOGLOBIN 13.4 g/dL (12.0-16.0); LYMPHOCYTES # (AUTO) 2.1 (1.0-3.2); MEAN CORPUSCULAR HEMOGLOBIN 29.1 pg (28-32); MEAN CORPUSCULAR HGB CONC 34.4 g/dL (31-35); MEAN CORPUSCULAR VOLUME 84.8 fL (81-99); MONOCYTES # (AUTO) 1.4 (0.2-0.8); MONOCYTES % 11.6 % (4.4-11.3); NEUTROPHILS # (AUTO) 8.1 (2.1-6.9); NEUTROPHILS % 69.8 % (38.7-80.0); PLATELET COUNT 492 x10e3/uL (140-360); RED CELL DISTRIBUTION WIDTH 14.6 % (11.7-14.4)
[2019-07-19 07:59] LABS: ANION GAP 22.4 mmol/L (8-16); CALCIUM 11.5 mg/dL (8.4-10.2); CREATININE, SERUM 2.69 mg/dL (0.57-1.11); POTASSIUM 3.4 mmol/L (3.5-5.1)
[2019-07-19 08:23] VITALS: BP 145/87
[2019-07-19 08:40] VITALS: BP 145/87
[2019-07-19 08:50] LABS: MAGNESIUM 2.4 MG/DL (1.3-2.1); PHOSPHORUS 5.1 MG/DL (2.3-4.7)
[2019-07-19] MEDS ORDERED: FAMOTIDINE 20 MG/2 ML VIAL IV SCH (09:00)
--- NOTE | 2019-07-19 09:10 | NUR ---
upon rounding again, patient found getting out of the shower. again water covers the floor, and patient warned again about the safety hazard that poses. IV is still in tact and patient was helped to safely walk back to the bed. when asking the patient why she feels the need to take so many showers she stated, "it helps the pain." spoke with the patient about safety goals for patient and staff, and told her that our bathrooms are not equipped with a tub, so the bathroom is more prone to flooding as she has witnessed already. patient agreed to not continue taking showers constantly. gave patient a heating pack for abdomen, as she states the heat helps her stomach. warm blankets given at this time. bed in lowest, locked position and call mccauley within reach.
[2019-07-19] MEDS ORDERED: POTASSIUM CHLORIDE 10MEQ EA PO NR (09:30)
[2019-07-19] MEDS ORDERED: ACETAMINOPHEN 1000 MG/100 ML IV PRN (09:30)
[2019-07-19] MEDS: PANTOPRAZOLE 40 MG 10ML VIAL IV SCH ×2 (09:30→21:37)
[2019-07-19] MEDS ORDERED: PROMETHAZINE 12.5MG/ NACL 0.9% 12.5 MG/50 ML BAG IV PRN (09:30)
[2019-07-19] MEDS: CEFTRIAXONE SOD 1 GM/NS 50 ML 50 ML IV SCH (09:30)
[2019-07-19] MEDS ORDERED: TRAMADOL HCL 50 MG TAB PO PRN (09:30)
[2019-07-19] MEDS: AZITHROMYCIN 500MG/NS 250 ML 250 ML IV SCH (10:30)
--- NOTE | 2019-07-19 10:46 | NUR ---
SAT WITH PATIENT WHILE WAITING FOR THE SITTER TO ARRIVE. DURING THIS TIME I WITNESSED THE PATIENT WALKING AROUND THE ROOM CARELESSLY NOT WATCHING OUT FOR THE IV LINE ATTACHED TO HER ARM AND SHE WAS INAPPROPRIATELY DRESSED IN A HOSPITAL GOWN THAT WAS NOT SECURED AND SHE WAS NOT ALLOWING STAFF TO HELP HER. SHE SAID SHE HAD TO GO TO THE BATHROOM AND SHE WAS WITNESSED STANDING IN FRONT OF THE SINK DRINKING WATER FROM THE FAUCET, BRUSH HER TEETH, THEN GO TO THE TOILET AND PUT HER FINGERS DOWN HER THROAT AND VOMIT, SHE PUT HER FINGERS IN HER THROAT SEVERAL TIMES AND VOMITED CLEAR, GREEN TINTED LIQUID. WHEN ASKED WHY SHE WAS DOING THIS SHE STATED, "TO GET IT OUT FASTER". I SPOKE TO HER ABOUT HER BEHAVIOR AND EXPLAINED THAT SHE TESTED POSITIVE FOR MANY DRUGS IN HER URINE SCREEN. SHE STATED, " I DON'T DO DRUGS, HOW DID I GET THE DRUGS IN MY BLOOD?" I EXPLAINED THAT IT WAS URINE AND SHE DENIES USING DRUGS. SHE DID SAY THAT SHE HAS BEEN HAVING THIS PAIN SINCE SHE WAS 16 AND "IT STARTED WITH H PYLORI" AND SHE TAKES MEDS FOR PAIN AT HOME. WHEN ASKED WHAT THE MEDS WERE SHE STATED, " ZOFRAN, PHENERGAN, TORADOL, AND TYLENOL #3, AND THAT'S WHEN I HAVE MONEY". SHE ADDED, "ALL I DO IS COME TO THE HOSPITAL AND THEY GIVE ME MORPHINE AND THEN I GO HOME." THE PATIENT'S IV WAS IN AN AWKWARD PLACE THAT KINKED WHEN SHE BENT HER LEFT ARM AND SO I WAS ATTEMPTING TO START ANOTHER IV IN A BETTER POSITION, SHE SLEPT DURING THE 4 ATTEMPTS AND THE ONLY MOVEMENT WAS JERKING OCCASIONALLY. I CONTACTED FINAL ASSEMBLY AND PACKING SUPERVISOR, SKINNY RAMOS, AND EXPLAINED THAT WE ARE OBLIGATED TO CALL CPS BECAUSE OF THE POSITIVE DRUG SCREEN AND HER DRIVING HERSELF TO THE ER WITH A 6 MONTH OLD AND NO CAREGIVER TO TAKE THE CHILD. THE FINAL ASSEMBLY AND PACKING SUPERVISOR IS GOING TO CONTACT CPS AND OPEN A CASE.
--- NOTE | 2019-07-19 11:45 | NUR ---
ATTEMPTED TO DO DPA, PT VERY SLEEPY, UNABLE TO STAY AWAKE, WILL RETURN AT A LATER TIME
[2019-07-19 11:51] VITALS: BP 113/75
--- NOTE | 2019-07-19 12:11 | History and Physical ---
The patient was admitted from outpatient emergency room. CHIEF COMPLAINT: Nausea and vomiting. The patient admitted from an unassigned call. HISTORY OF PRESENT ILLNESS: The patient is a 23-year-old female, first time here in this hospital, but she has been in and out of the hospital multiple times per patient, but not much history can be obtained clearly at this time due to the patient stating that she has not slept for the past 3 or 4 days and that she is very sleepy. She is asking for pain medication because of abdominal pain. Apparently, she was at [facility] recently and had multiple workup done. She was told that she had H. pylori and gastric ulcer, but not treated. Apparently, she was out with her friends and drinking some drugs. The patient stated that it was some sort of ecstasy bottle of liquid that had multiple other drugs in it. Her drug screen show up in the outpatient emergency room. Paperwork shows she is positive for marijuana, morphine, methamphetamine, and oxycodone. Her HCT urine is negative. test negative. She had increase in BUN and creatinine on admission to the outpatient emergency room. The patient is dehydrated. She is admitted to the hospital for further rehydration. The patient is having some vomiting and abdominal pain. She is stating that by gagging herself, she felt better. The patient's otherwise respiratory and cardiac stable at this time. PAST MEDICAL HISTORY: Gastric ulcer, recreational drug abuse, possible chronic kidney disease, possible diabetes, , and cholecystectomy. SOCIAL HISTORY: Multiple recreational drug abuse. Alcohol. Smoker. PHYSICAL EXAMINATION: VITAL SIGNS: Temperature is 97, blood pressure 145/87, pulse rate is 118, and respiration 18. GENERAL: The patient is sleepy, but able to answer any question. HEENT: Normocephalic and atraumatic. Pupils reactive. Anicteric. NECK: Supple grossly. PULMONARY: Diminished breath sounds without any wheezing or rales. CARDIOVASCULAR: Tachycardia. ABDOMEN: Soft, non-distention. Generalized discomfort. No guarding. Positive bowel sounds. EXTREMITIES: No cyanosis or edema. NEUROLOGIC: Walking and moving all extremities. No focal deficit. LABORATORY DATA: WBC is 10.3, hemoglobin 14.9, hematocrit 44, and platelet is 579. Chemistry; sodium is 139, potassium 3.4, chloride is 95, bicarb 25, BUN is 34, creatinine 2.7, and glucose 114. Calcium level is 11.5. Magnesium 2.4 and phosphorus 5.4. B12 and folic acid still pending. Urinalysis still pending. IMAGING TESTS: Abdominal and pelvic CT scan without contrast showed no acute finding in the abdomen or pelvis. IMPRESSION: 1. Acute kidney injury, most likely on top of chronic kidney insufficiency. The patient is dehydrated. 2. Multiple recreational drug abuse including methamphetamine, opioid, marijuana, morphine, and oxycodone. 3. Hypercalcemia, possible from dehydration. 4. Electrolyte disorder as mentioned above. PLAN: Continue with rehydration. Non-narcotic pain medication. PPI. Consultation with Renal and GI. Continue to monitor the patient closely. IV fluids. Repeat lab work. Check the calcium level. MD TIARA Chavez/MODL /[id number]
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
[2019-07-19] MEDS: ONDANSETRON HCL INJ 2MG/ML 2ML 2 MG/ML VIAL IV PRN ×2 (15:35→23:45)
--- NOTE | 2019-07-19 16:03 | NUR ---
Nutrition Screen Note RD Recommendation for Physician: 1. Advance diet to Regular diet as medically appropriate Plan of Care: RD following, monitoring for tolerance and adequacy Nutrition reason for involvement: Nutrition Risk Trigger Primary Diagnose(s): Intractable, acute renal failure PMH: Per pt charts and MD assessment, Gastric ulcer, recreational drug abuse, possible chronic kidney disease, possible diabetes, , and cholecystectomy. Ht: 61in Wt: 123lbs BMI: 23.23kg/m2 IBW: 105lbs +/- 10% RD Assessment: (07/19) Chart reviewed. Labs and meds reviewed. 23 y/o F admitted for abdominal pain. Per pt chart, the patient was dehydrated upon admission, tested positive for multiple recreational drugs, and stated she previously dx with H. pylori and gastric ulcer at a different medical facility. Most recent labs showed sodium 139, potassium 3.4, chloride is 95, bicarb 25, BUN is 34, creatinine 2.7, glucose 114, calcium 11.5, magnesium 2.4 and phosphorus of 5.4. Pt was lethargic, unresponsive and unable to arouse during multiple visit, sitter also in the room with patient. Hx mostly obtained through patient chart, currently on clear liquid diet per MD. Will continue to monitor and follow as needed. Current Diet: Clear liquid Malnutrition Evaluation (07/19) The patient does not meet criteria for a specified degree of malnutrition at this time. Will re-evaluate at follow-up as appropriate. Diet Education Needs Assessment: Diet education not indicated at this time. Nutrition Care Level: LOW Signed: Berta Johnson, MS, RDN, LD
[2019-07-19 16:57] VITALS: BP 137/78
[2019-07-19 16:58] LABS: BILIRUBIN,URINE NEGATIVE (NEGATIVE); CLARITY,URINE CLEAR (CLEAR); COLOR,URINE YELLOW (YELLOW); KETONES,URINE NEGATIVE (NEGATIVE); LEUKOCYTE ESTERASE ,URINE NEGATIVE (NEGATIVE); NITRITE,URINE NEGATIVE (NEGATIVE); PROTEIN,URINE DIPSTICK 1+ (NEGATIVE); URINE UROBILINOGEN 0.2 mg/dL (0.2 - 1)
--- NOTE | 2019-07-19 17:03 | Consultation ---
DATE OF CONSULTATION: 07/19/2019 Nephrology consult HISTORY OF PRESENT ILLNESS: The patient is a 23-year-old woman who has a history of reported diabetes, gastric ulceration, and possible chronic kidney disease. She presents for initial evaluation of nausea and vomiting. I am asked to evaluate acute kidney injury. The patient was seen on the medical floor after ER evaluation. She is noted to have had a 3 to 4-day history of insomnia, meanwhile at the same had been reported alcohol and illicit drug use. She is noted to have ingested ecstasy and multiple other drugs as per review. Urinary drug screen is positive for marijuana, morphine, methamphetamine, and oxycodone. Her test was unremarkable/negative. The patient was recently hospitalized at [facility] and she knows that she had kidney injury at that time due to dehydration. She states that she has never received dialysis. She is unsure of her degree of renal dysfunction. Since admission, she has had initiation of IV hydration. She has a sitter at bedside at this time. Laboratories on admission revealed elevated creatinine of 2.7 mL/dL, BUN 34, and bicarbonate level of 25. She had mild hypercalcemia with calcium level of 11.5. REVIEW OF SYSTEMS: Otherwise as noted in history. She denies melenic stools, bright red blood per rectum, diarrhea, lower extremity edema, skin rash, headaches, epistaxis, hemoptysis, cough, angina, palpitation, or paraesthesias. PAST MEDICAL HISTORY: Gastric ulcer, recreational drug abuse, possible chronic kidney disease, and possible diabetes. PAST SURGICAL HISTORY: section and cholecystectomy. SOCIAL HISTORY: Positive alcohol, positive tobacco, and positive multiple recreational drug abuse. LABORATORY DATA: White count is presently 11.6, hemoglobin 13.4, and platelets 492. Sodium 139, potassium 3.4, bicarbonate 25, creatinine 2.6, BUN 34, glucose 114, calcium of 11.5, phosphorus 5.1, and magnesium 2.4. Urinalysis is not available. CT of the abdomen and pelvis without IV contrast revealed no acute findings in the abdomen or pelvis by formal report now. PHYSICAL EXAMINATION: GENERAL: She is awake, tired appearing, slow to respond, but becomes awake after few minutes. VITAL SIGNS: She is afebrile at 96.8, respirations 16 and unlabored, pulse 76 and regular, and blood pressure 113/75. HEAD AND NECK: Dry oral mucosa. Atraumatic, normocephalic. Anicteric sclerae. No scleral or mucosal lesions. NECK: Supple. No JVP. Positive midline trachea. LUNGS: Clear bilaterally. No overt wheezes, rhonchi, or rales. CARDIAC: Regular rate. No S3 gallops. No rubs appreciated. ABDOMEN: Soft, nontender, and nondistended. No guarding or rebound. EXTREMITIES: No overt edema. SKIN: No rash or lesions. ASSESSMENT: 1. Acute kidney injury with considered history of underlying chronic kidney disease, details unknown. This likely represents an acute tubular necrosis from a sustained renal hypoperfusion effects with contributing effects of illicit drugs as noted. To rule out any protective component. No acute interstitial nephritis or atheroembolic stigmata noted. 2. Volume status is depleted. 3. Hemodynamically stable. 4. Stable acid-base status. 5. Mild hypercalcemia. 6. Mild hypokalemia. PLAN: 1. Daily renal panel. 2. Dose adjust medications for an estimated creatinine clearance of 25 to 30 mL/min. 3. Presently no acute indications for dialysis consideration. 4. Continue IV hydration. 5. Renal ultrasound. 6. Urinalysis. 7. Spot urine sodium, creatinine, and protein. 8. Continue to avoid IV dye, MRA, nephrotoxins such as nonsteroidal anti-inflammatory medications as being done. 9. Other plans as per clinical course and data. MD ESPERANZA Nunez/MODL /[id number]
[2019-07-19 17:12] LABS: AMORPHOUS SEDIMENT,URINE FEW (FEW); BACTERIA,URINE MODERATE /HPF; EPITHELIAL CELLS,URINE MODERATE /LPF; RBC,URINE 0-5 /HPF (0-5); WBC,URINE (MAN) 0-5 /HPF (0-5)
[2019-07-19 17:55] LABS: CREATININE,URINE RANDOM 263.42 mg/dL (47-110); TOTAL PROTEIN, URINE 34.1 mg/dL (1-14)
--- NOTE | 2019-07-19 18:40 | NUR ---
rounded with caustic cresylate shift superintendent nurse, patient resting comfortably and in no distress at this time. bed alarm on, in lowest locked position and call mccauley within reach.
--- NOTE | 2019-07-19 19:00 | NUR ---
BED SIDE SHIFT REPORT TAKEN FROM MORNING RN.CURRENTLY SLEEPING IN THE BED.NO SITTER WITH HER.
[2019-07-19 19:41] LABS: SODIUM,URINE < 20 mmol/L
[2019-07-19 20:00] VITALS: BP 108/64
[2019-07-19 21:22] VITALS: BP 108/64
--- NOTE | 2019-07-19 23:29 | Consultation ---
DATE OF CONSULTATION: 07/19/2019 GI Consult Note REASON FOR CONSULT: Nausea, vomiting, and abdominal pain x1 day. HISTORY OF PRESENTING ILLNESS: [age] years old Afro-[place] female from whom I cannot derive any history. Currently, she is very drowsy, sleepy. Most of my information is derived from the medical chart. Apparently, she got admitted through some free-standing emergency room. She presented there with acute onset of some nausea, vomiting, and abdominal pain. Prior to that she was out with her friends and use illicit drugs. Her outpatient urine drug toxicology in freestanding ER was noted positive for marijuana, morphine, methamphetamine, and oxycodone. Subsequently, she got transferred here. CT scan of the abdomen without contrast was unremarkable. Blood work is also unrevealing except hypercalcemia with a calcium level of 11.5. There is a reported history of gastric ulcer, H. pylori gastritis when she was admitted in [facility] sometimes. Prior to this, she got admitted in this hospital first time. Prior to that, she has been to many other hospitals. PAST MEDICAL HISTORY: Polysubstance abuse, chronic kidney disease, prediabetes and history of peptic ulcer disease. PAST SURGICAL HISTORY: and cholecystectomy. FAMILY HISTORY: Noncontributory. SOCIAL HISTORY: Polysubstance abuse. Alcohol, regular use of alcohol, chronic smoker. ALLERGIES: NONE. HOME MEDICATIONS: None. Inpatient medication list reviewed as per DEC. She is on azithromycin and ceftriaxone intravenous antibiotic along with other supportive medications. REVIEW OF SYSTEMS: Unobtainable. PHYSICAL EXAMINATION: VITAL SIGNS: Temperature 97.6, pulse ranging from 104 to 55, respirations 18, blood pressure 108/54, oxygen saturation 97% on room air. GENERAL: Drowsy, lethargic. Oral mucosa is moist. CVS: S1 and S2 regular. LUNGS: Bilaterally grossly clear. ABDOMEN: Soft, nondistended. Poorly localized diffuse tenderness without rebound, rigidity, or guarding. Positive bowel sounds. EXTREMITIES: Warm. No leg edema. LABORATORY DATA: Sodium 139, potassium 3.4, chloride 95, bicarb 25, BUN 34, creatinine 2.69, glucose 114 and calcium 11.5. WBC 11.64, hemoglobin 13.4, hematocrit 39, MCV 84.8, platelet count 492. IMAGING: CT of the abdomen and pelvis without IV contrast showed no acute finding in the abdomen and pelvis. IMPRESSION: Abdominal pain, likely due to use of recreational drugs. Nausea and vomiting are also due to same reason. PLAN: Supportive care. Correct hypercalcemia. Monitor her clinically. I will continue to follow her. I thank Dr. Acosta for allowing me to participate in the care of this patient. Ronald Ho MD SA/SAVANNAH /[id number]
--- NOTE | 2019-07-19 23:45 | NUR ---
Patient ambulates and voided in the toilette.drank 2 apple juice.took shower.was trying to vomit.zofran 4 mg iv given.bed alarm on.bed locked and in lowest position.instructed to call for assistance as needed.
[2019-07-20] VITALS (8 sets, daily range): BP systolic 111–146; BP diastolic 61–87
[2019-07-20] MEDS: LORAZEPAM INJ 2 MG/ML VIAL IV PRN ×5 (00:05→23:18)
[2019-07-20] MEDS: SODIUM CHLORIDE 0.9% 1000ML 1,000 ML IV SCH ×4 (00:26→23:52)
[2019-07-20 05:20] LABS: FOLATE 16.2 ng/mL (7.0-15.4)
[2019-07-20 06:19] LABS: BASOPHILS % 0.3 % (0.0-1.0); HEMATOCRIT 31.9 % (34.2-44.1); HEMOGLOBIN 10.6 g/dL (12.0-16.0); LYMPHOCYTES # (AUTO) 1.6 (1.0-3.2); LYMPHOCYTES % 25.4 % (18.0-39.1); MEAN CORPUSCULAR HEMOGLOBIN 29.4 pg (28-32); MEAN CORPUSCULAR HGB CONC 33.2 g/dL (31-35); MEAN CORPUSCULAR VOLUME 88.4 fL (81-99); MONOCYTES # (AUTO) 0.5 (0.2-0.8); MONOCYTES % 7.9 % (4.4-11.3); NEUTROPHILS % 65.3 % (38.7-80.0); PLATELET COUNT 294 x10e3/uL (140-360); RED BLOOD COUNT 3.61 x10e6/uL (3.6-5.1); RED CELL DISTRIBUTION WIDTH 14.7 % (11.7-14.4)
[2019-07-20 06:40] LABS: ALANINE AMINOTRANSFERASE 16 IU/L (0-55); ALBUMIN 3.8 g/dL (3.5-5.0); ALBUMIN/GLOBULIN RATIO 1.3 (0.8-2.0); ALKALINE PHOSPHATASE 64 IU/L (40-150); ANION GAP 12.2 mmol/L (8-16); BLOOD UREA NITROGEN 14 mg/dL (7-26); BUN/CREATININE RATIO 14 (6-25); CARBON DIOXIDE 27 mmol/L (22-29); CHLORIDE 103 mmol/L (98-107); CREATININE, SERUM 0.97 mg/dL (0.57-1.11); EST GLOMERULAR FILTRATION RATE > 60 ML/MIN (60-); GLUCOSE 103 mg/dL (74-118); POTASSIUM 3.2 mmol/L (3.5-5.1); SODIUM 139 mmol/L (136-145)
--- NOTE | 2019-07-20 07:00 | NUR ---
BEDSIDE SHIFT REPORT GIVEN TO THE ONCOMING RN.STABLE CONDITION.
[2019-07-20] MEDS: INSULIN REGULAR, HUMAN 100 UNIT/1 ML 3ML VIAL SQ SCH ×2 (07:30→11:30)
[2019-07-20] MEDS ORDERED: POTASSIUM CHLORIDE 20 MEQ TAB CR PO STA (07:53)
[2019-07-20] MEDS: PANTOPRAZOLE 40 MG 10ML VIAL IV SCH ×2 (08:35→21:10)
[2019-07-20] MEDS: CEFTRIAXONE SOD 1 GM/NS 50 ML 50 ML IV SCH (08:35)
[2019-07-20] MEDS: AZITHROMYCIN 500MG/NS 250 ML 250 ML IV SCH (09:30)
[2019-07-20] MEDS: ONDANSETRON HCL INJ 2MG/ML 2ML 2 MG/ML VIAL IV PRN (09:30)
--- NOTE | 2019-07-20 10:50 | NUR ---
patient drowsy, but oriented. Insisting to go for a short walk as she states it helps with her pain. Asked the patient to describe the pain in her abdomen she feels and she described it somewhat of a cramping feeling. Ambulated with patient down the hallway, patient is somewhat unsteady on her feet, but easily guided and legs are strong. patient back to bed, bed in the lowest locked position and call mccauley within reach. bed alarm on at this time.
--- NOTE | 2019-07-20 19:00 | NUR ---
Received the patient from morning Efraín Desai.resting in the bed.
--- NOTE | 2019-07-20 19:00 | NUR ---
rounded with cook supervisor nurse, patient resting comfortably and in no distress. call mccauley within reach, bed alarm on and bed in lowest position.
--- NOTE | 2019-07-20 23:22 | NUR ---
was doing rounds.assessment done.no resp.distress.drank apple juicex2.bed locked and in lowest position.bed alarm on.phone and call light within reach.instructed to call for assistance as needed.
--- NOTE | 2019-07-20 23:23 | Progress Note ---
DATE: 07/20/2019 SUBJECTIVE: The patient is somewhat awake today, less drowsy and lethargic. She is able to talk. She reports significant improvement in abdominal pain. No nausea or vomiting. REVIEW OF SYSTEMS: GENERAL: No fever or chills. CVS: No chest pain or palpitation. RESPIRATORY: No cough or expectoration. MEDICATIONS: Reviewed the MAR sheet, on lorazepam, azithromycin, tramadol, Zofran, ceftriaxone, and pantoprazole. PHYSICAL EXAMINATION: VITAL SIGNS: Temperature 96.8, pulse 69, respirations 18, blood pressure 121/72, and oxygen saturation 100% on room air. GENERAL: Not in any acute distress. Oral mucosa is moist. ABDOMEN: Soft and nondistended. Mild, poorly localized tenderness without rebound, rigidity, or guarding. Positive bowel sounds. LABORATORY DATA: WBC 6.10, hemoglobin 10.6 down from 13.4, hematocrit 31.9, and platelet count 294. Sodium 139, potassium 3.2, chloride 103, bicarb 27, BUN 14, creatinine 0.97, and calcium 9. Liver enzymes are normal. IMPRESSION: Abdominal pain secondary to use of recreational medication. She stated that she used ecstasy. PLAN: Supportive care. Antibiotic is being given for some underlying infection. I counseled her for complete abstinence from all recreational drugs. We will monitor her clinically. Ronald Ho MD SA/SAVANNAH /[id number]
[2019-07-21] VITALS (8 sets, daily range): BP systolic 119–187; BP diastolic 65–85
[2019-07-21] MEDS: LORAZEPAM INJ 2 MG/ML VIAL IV PRN (05:30)
[2019-07-21 05:49] LABS: ANION GAP 9.5 mmol/L (8-16); BLOOD UREA NITROGEN 5 mg/dL (7-26); BUN/CREATININE RATIO 6 (6-25); CALCIUM 8.5 mg/dL (8.4-10.2); CARBON DIOXIDE 28 mmol/L (22-29); CHLORIDE 105 mmol/L (98-107); CREATININE, SERUM 0.83 mg/dL (0.57-1.11); EST GLOMERULAR FILTRATION RATE > 60 ML/MIN (60-); GLUCOSE 87 mg/dL (74-118); POTASSIUM 3.5 mmol/L (3.5-5.1); SODIUM 139 mmol/L (136-145)
[2019-07-21 06:02] LABS: MAGNESIUM 1.8 MG/DL (1.3-2.1); PHOSPHORUS 2.9 MG/DL (2.3-4.7)
--- NOTE | 2019-07-21 07:10 | NUR ---
Bed side shift report given to the oncoming rn.stable condition.taking shower now.
[2019-07-21] MEDS ORDERED: ONDANSETRON HCL 4 MG ORAL DISINTEGRATING TAB PO PRN (09:00)
[2019-07-21] MEDS: PANTOPRAZOLE 40 MG 10ML VIAL IV SCH ×2 (09:36→20:04)
--- NOTE | 2019-07-21 13:42 | Progress Note ---
DATE: 07/21/2019 SUBJECTIVE: Feeling better. Nausea, vomiting improved. She has gotten some IV fluids. Calcium has now improved. She is worried about GI followup. There is a history of illicit drug use. PHYSICAL EXAMINATION: GENERAL: Lying in bed, no distress. VITAL SIGNS: Temperature 96.5, pulse 70, and blood pressure 123/82. CHEST: Clear. EXTREMITIES: No edema. ABDOMEN: Benign. LABORATORY DATA: Hemoglobin is 10.6. Potassium is 3.5, serum CO2 is 28, creatinine 0.8, calcium is down to 8.5, magnesium is 1.8. ASSESSMENT: Hypercalcemia, volume depletion, and hypokalemia are all improved. PLAN: 1. Avoid Tums. 2. Await GI followup. 3. We will follow along. MD NAGA BestK/SAVANNAH /[id number]
--- NOTE | 2019-07-21 17:59 | Consultation ---
DATE OF CONSULTATION: 07/21/2019 Psychiatric Consultation The patient evaluated and events noted. REASON FOR CONSULTATION: To evaluate the patient's mood. HISTORY OF PRESENT ILLNESS: The patient is a 23-year-old female, admitted to the hospital for intractable acute renal failure. Psychiatric consultation is called to evaluate the patient's mood. As per medical record, the patient has history of multiple hospital visits. She claims that she has not been sleeping for the past 3 or 4 days. She admitted to recently abusing some drugs at a green party and was taking ecstasy. UDS positive for marijuana, morphine, methamphetamine, and oxycodone. Discussed with Medico attending to evaluate the patient's mood and drug abuse. Upon evaluation today, the patient is found to be lying on the bed. She is alert, awake, and oriented to situation. She is calm and cooperative. She is somewhat withdrawn. She claims that she is feeling fairly okay, however, later admits that she has been stressed due to in general and has not been sleeping well. She gets about 3 hours of sleep at night. She denies any depression. Denies any suicidal or homicidal ideation. She denies any hopelessness or helplessness. She admits to taking pills lately, which she claims has a combination of other drugs in it. She also admits to taking weed. PAST PSYCHIATRIC HISTORY: The patient denies past psychiatric history. She denies past suicide attempts. She denies alcohol use, but admits to taking marijuana and Ecstasy. FAMILY HISTORY: Denies. SOCIAL HISTORY: The patient states that she lives with her daughter, but they will . MENTAL STATUS EXAM: The patient is very young female, oriented to situation. Mood is anxious. Her affect is depressed-appearing. Psychomotor state is retardation. She denies any suicidal or homicidal ideation. She denies any hallucination. Thought process is concrete. No delusion elicited. Insight and judgment are fair. Memory appears to be grossly intact. CURRENT MEDICATIONS: 1. Protonix. 2. Tramadol p.r.n. 3. Ondansetron. LABORATORY DATA: Current labs, WBC 6.10, RBC 12.61, hemoglobin 10.6, hematocrit 31.9, and platelets 294. Sodium 139, potassium 3.5, chloride 105, CO2 28, BUN 5, and creatinine 0.83. AST 22 and ALT 32. ASSESSMENT: 1. Adjustment disorder mood. 2. Marijuana abuse, Ecstasy abuse, methamphetamine abuse. PLAN: 1. To add Remeron 15 mg p.o. at bedtime. 2. Add BuSpar 5 mg p.o. 3 times a day as needed. 3. Monitor for mood. 4. Supportive therapy. 5. Recommend total abstinence from alcohol and drugs. Thank you for this consultation. Dictated by Simran Wiggins PA-C David Marsh MD QTV/GREGORIOL /[id number]
--- NOTE | 2019-07-21 19:00 | NUR ---
received report from day nurse. patient is resting comfortably in bed. bed is in lowest position and call mccauley is within reach. will continue to monitor patient.
[2019-07-21] MEDS: BUSPIRONE HCL 5 MG TAB PO PRN (20:04)
[2019-07-21] MEDS ORDERED: MIRTAZAPINE 15 MG TAB PO SCH (21:00)
--- NOTE | 2019-07-21 22:25 | Progress Note ---
DATE: 07/21/2019 SUBJECTIVE: The patient is much more alert, awake, oriented now. Reports no abdominal pain. She is now hungry, eating solid food. She has had one small bowel movement, stool brown. REVIEW OF SYSTEMS: GENERAL: No fever or chills. CVS: No chest pain or palpitation. RESPIRATORY: No cough or expectoration. MEDICATIONS: Buspirone, mirtazapine, pantoprazole, tramadol, and Zofran. OBJECTIVE: VITAL SIGNS: Temperature 97.5, pulse 86, respirations 16, blood pressure 150/65, oxygen saturation 99% on room air. GENERAL: Not in any acute distress. HEENT: Oral mucosa is moist. Anicteric sclerae. ABDOMEN: Soft, nondistended, nontender. No mass or hernia. Positive bowel sounds. LABORATORY DATA: Electrolytes showed sodium 139, potassium 3.5, chloride 105, bicarb 28, BUN 5, creatinine 0.83, and glucose 87. IMPRESSION: Abdominal pain secondary to use of recreational medication. Abdominal symptoms have completely resolved. She is tolerating oral diet, regular BM. PLAN: Supportive care. Antibiotic has been discontinued. The patient has also been evaluated by Psychiatric Service. Ronald Ho MD SA/SAVANNAH /[id number]
[2019-07-22] VITALS: BP 123/66
[2019-07-22 04:00] VITALS: BP 132/72
[2019-07-22 05:54] LABS: ANION GAP 12.7 mmol/L (8-16); BLOOD UREA NITROGEN 11 mg/dL (7-26); BUN/CREATININE RATIO 11 (6-25); CALCIUM 9.1 mg/dL (8.4-10.2); CARBON DIOXIDE 29 mmol/L (22-29); CHLORIDE 101 mmol/L (98-107); CREATININE, SERUM 0.96 mg/dL (0.57-1.11); EST GLOMERULAR FILTRATION RATE > 60 ML/MIN (60-); GLUCOSE 93 mg/dL (74-118); POTASSIUM 3.7 mmol/L (3.5-5.1); SODIUM 139 mmol/L (136-145)
--- NOTE | 2019-07-22 07:14 | NUR ---
report given to day nurse. patient is resting comfortably in bed. bed is in lowest position and call mccauley is within reach.
[2019-07-22] MEDS: PANTOPRAZOLE 40 MG 10ML VIAL IV SCH (09:05)
[2019-07-22] MEDS: BUSPIRONE HCL 5 MG TAB PO PRN (09:07)
[2019-07-22 09:40] VITALS: BP 125/87
[2019-07-22] MEDS ORDERED: OMEPRAZOLE40 MG PO (10:52)
[2019-07-22] MEDS ORDERED: BUSPIRONE HCL5 MG PO (10:52)
[2019-07-22 12:00] VITALS: BP 120/73
--- NOTE | 2019-07-22 16:06 | NUR ---
patient discharge instructions given, patient verbalized understanding. IV discontinued, catheter in tact and small dressing applied. patient being wheeled out to personal auto for friend to drive home.
--- NOTE | 2019-07-24 04:52 | Discharge Summary ---
CONSULTANTS: 1. Dhiraj Gr MD. 2. Tova Hernandez MD. 3. David Marsh MD. FINAL DIAGNOSES: 1. Intractable nausea and vomiting secondary to polysubstance abuse. Please review my history and physical. 2. Acute kidney injury secondary to severe dehydration associated with nausea and vomiting. 3. Electrolyte disorder secondary to above. 4. Polysubstance abuse as mentioned. 5. Anxiety and depression. SUMMARY: A 23-year-old female with polysubstance abuse. Apparently, she went out repeatedly and having multiple episodes of using drugs. The patient came in with acute kidney failure secondary to severe dehydration, nausea, vomiting, and retching. The patient had multiple hospitalization because of her polysubstance abuse. Discussed with the patient at length, now she is much better, stable. Discussed with the patient regarding polysubstance abuse. Consultation with Dr. Marsh as well. Buspirone initiated. The patient is otherwise stable now. BUN and creatinine are 11 and 0.9, sodium 139, potassium 3.7, chloride 101, and bicarb 29. WBC 6.0. The patient does have gastritis due to her problem and she is doing well with the pantoprazole. The patient is discharged home today. She is stable. She will go home with omeprazole 40 mg daily and BuSpar 5 mg q.8 hours as needed for anxiety. The patient is stable. Discussed with the patient at length regarding polysubstance abuse and that the patient needs to follow up with her family physician and psychiatrist for close monitoring and adjustment of her medication. MD TIARA Chavez/MODL /[id number]
== END 2019-07-22 16:04 | disposition home or self-care (01) | DRG 641 ==
LOC: FSED 10:13 → ERHOLD 15:41 → MED/SURG 16:49 → OBSVTOIN 07-19 09:26
PROVIDERS: ADMIT Internal Medicine; ATTEND Internal Medicine
DX: E86.0 Dehydration (principal); N17.9 Acute kidney failure, unspecified; E87.8 Other disorders of electrolyte and fluid balance, not elsewhere classified; F41.9 Anxiety disorder, unspecified; F15.10 Other stimulant abuse, uncomplicated; F12.10 Cannabis abuse, uncomplicated; R11.2 Nausea with vomiting, unspecified; E86.9 Volume depletion, unspecified; E83.52 Hypercalcemia; E87.6 Hypokalemia; Z87.11 Personal history of peptic ulcer disease; F43.23 Adjustment disorder with mixed anxiety and depressed mood; R10.84 Generalized abdominal pain; K29.70 Gastritis, unspecified, without bleeding
CPT/HCPCS: 36415; 74176; 80048; 80053; 80076; 80307; 81001; 81003; 81025; 82570; 82607; 82746; 82948; 83036; 83735; 83970; 84100; 84156; 84165; 84300; 85025; 99284; G0378; J0456; J0696; J1817; J1885; J2060; J2270; J2405; J2550; J7030; Q9967

== ENCOUNTER 2019-08-14 17:17 | Emergency (ER) | payer MEDICARE ==
[~2019-08-14] VITALS: Ht 154.9 cm; Wt 58.1 kg
[~2019-08-14 17:17] MED LIST: BUSPIRONE HCL5 MG PO; OMEPRAZOLE40 MG PO
[2019-08-14] MEDS ORDERED: SODIUM CHLORIDE 0.9% 1000ML 1,000 ML IV STA (17:33)
[2019-08-14] MEDS ORDERED: KETOROLAC TROMETHAMINE 30 MG/ML VIAL IV ONE (17:45)
[2019-08-14] MEDS ORDERED: ONDANSETRON HCL INJ 2MG/ML 2ML 2 MG/ML VIAL IV ONE (17:45)
[2019-08-14] MEDS ORDERED: FAMOTIDINE 20 MG/2 ML VIAL IV ONE ×2 (17:45→17:47)
[2019-08-14] MEDS ORDERED: SODIUM CHLORIDE 0.9% 1000ML 1,000 ML ONE (17:47)
[2019-08-14] MEDS ORDERED: KETOROLAC TROMETHAMINE 30 MG/ML VIAL ONE (17:47)
[2019-08-14] MEDS ORDERED: ONDANSETRON HCL INJ 2MG/ML 2ML 2 MG/ML VIAL ONE (17:47)
--- NOTE | 2019-08-14 18:58 | NUR ---
report to DRE Gregorio
[2019-08-14 19:17] VITALS: BP 142/71
== END 2019-08-14 19:26 | disposition home or self-care (01) ==
LOC: FSED 17:17
DX: R10.13 Epigastric pain (principal); R11.2 Nausea with vomiting, unspecified; K29.00 Acute gastritis without bleeding; Z87.11 Personal history of peptic ulcer disease
CPT/HCPCS: 80053; 80076; 80307; 81003; 85025; 96374; 96375; 99283; J1885; J2405; J7030

== ENCOUNTER 2019-09-06 14:04 | Inpatient (IN) | payer MEDICARE, OTHER ==
[~2019-09-06] VITALS: Ht 154.9 cm; Wt 58.1 kg
[2019-09-06] MEDS ORDERED: SODIUM CHLORIDE 0.9% 1000ML 1,000 ML IV STA (15:42)
[2019-09-06] MEDS ORDERED: ONDANSETRON HCL INJ 2MG/ML 2ML 2 MG/ML VIAL ONE ×2 (16:02→18:00)
[2019-09-06] MEDS ORDERED: SODIUM CHLORIDE 0.9% 1000ML 1,000 ML ONE (16:02)
[2019-09-06] MEDS ORDERED: ONDANSETRON HCL INJ 2MG/ML 2ML 2 MG/ML VIAL IV ONE (16:30)
[2019-09-06] MEDS ORDERED: PROMETHAZINE HCL (IM) 25 MG/ML VIAL ONE (16:36)
[2019-09-06] MEDS ORDERED: PROMETHAZINE HCL (IM) 25 MG/ML VIAL IM ONE (17:00)
[2019-09-06] MEDS: ONDANSETRON HCL INJ 2MG/ML 2ML 2 MG/ML VIAL IV PRN ×2 (17:56→22:25)
[2019-09-06] MEDS: MORPHINE SULFATE 2 MG/ML SYR 1ML IV PRN ×2 (17:57→22:25)
[2019-09-06] MEDS ORDERED: MORPHINE SULFATE INJ 4 MG/ML INJ 1ML ONE (17:59)
--- NOTE | 2019-09-06 18:08 | Diagnostic Imaging Report ---
EXAM: CT Abdomen and Pelvis WITHOUT intravenous contrast INDICATION: Nausea and vomiting COMPARISON: CT abdomen pelvis dated 07/18/2019. TECHNIQUE: Abdomen and pelvis were scanned utilizing a multidetector helical scanner from the lung base to the pubic symphysis without administration of IV contrast. Coronal and sagittal reformations were obtained. Routine protocol was performed. Scan was performed during portal venous phase. IV CONTRAST: None ORAL CONTRAST: None RADIATION DOSE: Total DLP: 262 mGy*cm Dose modulation, iterative reconstruction, and/or weight based adjustment of the mA/kV was utilized to reduce the radiation dose to as low as reasonably achievable. FINDINGS: LOWER THORAX: Normal. HEPATOBILIARY: No focal liver lesion. Status post cholecystectomy. SPLEEN: No splenomegaly. PANCREAS: No focal masses or ductal dilatation. ADRENALS: No adrenal nodules. KIDNEYS/URETERS: No hydronephrosis, stones, or solid mass lesions. PELVIC ORGANS/BLADDER: Unremarkable. PERITONEUM / RETROPERITONEUM: Trace free fluid in the pelvis. LYMPH NODES: No lymphadenopathy. VESSELS: Unremarkable. GI TRACT: No abnormal bowel wall thickening. No bowel obstruction. The appendix is not well visualized, however there are no secondary inflammatory changes in the right lower quadrant to suggest appendicitis. BONES AND SOFT TISSUES: Unremarkable. SOFT TISSUES: Unremarkable. IMPRESSION: No acute findings in the abdomen or pelvis. Signed by: Bradley Lee MD on 09/06/2019 6:04 PM
[2019-09-06 19:45] VITALS: BP 124/76
--- NOTE | 2019-09-06 19:45 | NUR ---
Received report from previous nurse and called [facility] for report on patient. Talked to Caridad from [facility] about the patient. Patient arrived via stretcher very thirst so she drank 4 apple juices with ice and then decided to shower. She is A&Ox4 and ambulates. She complains of no pain or distress. Call light within reach.
[2019-09-06 20:00] VITALS: BP 124/76
[2019-09-06] MEDS: SODIUM CHLORIDE 0.9% 1000ML 1,000 ML IV SCH (21:18)
--- NOTE | 2019-09-06 23:00 | NUR ---
Patient was told not to use the blow dryer under the sheet because it is a fire hazard. Patient said okay but continues to use the blow dryer she brought with her
[2019-09-06 23:23] LABS: CREATINE KINASE MB 4.7 ng/mL (0-5.0)
[2019-09-07] VITALS (8 sets, daily range): BP systolic 103–138; BP diastolic 59–75
[2019-09-07] MEDS: MORPHINE SULFATE 2 MG/ML SYR 1ML IV PRN ×5 (02:48→20:48)
[2019-09-07] MEDS: ONDANSETRON HCL INJ 2MG/ML 2ML 2 MG/ML VIAL IV PRN ×5 (02:48→20:48)
[2019-09-07] MEDS ORDERED: LABETALOL HCL 5 MG/ML 20ML VIAL IV PRN (04:00)
--- NOTE | 2019-09-07 04:12 | NUR ---
H&P cc: intractable N/V HPI: 23yoF, PCP??, developed intractable N/V and constipation for 2 days; Pt found to be positive for marijuana and cocaine. PMH: polysubstance abuse, intractable N/V, Gastric ulcer, recreational drug abuse, possible chronic kidney disease, possible diabetes PSHx: , and cholecystectomy. Allergies; see emr FH/SH; single; Marijuana and other substances Meds; see MAR ROS: unreliable v/s; revd PE tired appearing anicteric ns1s2 mod bs soft nd; epigastrium tender no e/t skin dry awake; swenson labs/med revd A/P: KAVIN Cocaine intoxication Acute gastroenteritis Hypokalemia GERD Constipation Acute rhabdomyolysis PLAN IVF; SW for resources Flagyl; Replace whitley Follow CPK SCD; reina Arias MD, PhD.
[2019-09-07] MEDS: SODIUM CHLORIDE 0.9% 1000ML 1,000 ML IV SCH ×3 (05:29→20:48)
[2019-09-07] MEDS: PROMETHAZINE 12.5MG/ NACL 0.9% 12.5 MG/50 ML BAG IV PRN (05:45)
--- NOTE | 2019-09-07 07:00 | NUR ---
GAVE REPORT TO ONCOMING NURSE. PATIENT IN BED. CALL LIGHT WITHIN REACH.
[2019-09-07 07:09] LABS: BASOPHILS % 0.2 % (0.0-1.0); EOSINOPHILS # (AUTO) 0.1 (0.0-0.4); EOSINOPHILS % 0.5 % (0.0-6.0); HEMATOCRIT 32.9 % (34.2-44.1); HEMOGLOBIN 10.7 g/dL (12.0-16.0); LYMPHOCYTES # (AUTO) 1.6 (1.0-3.2); LYMPHOCYTES % 16.2 % (18.0-39.1); MEAN CORPUSCULAR HEMOGLOBIN 28.8 pg (28-32); MEAN CORPUSCULAR HGB CONC 32.5 g/dL (31-35); MEAN CORPUSCULAR VOLUME 88.4 fL (81-99); MONOCYTES # (AUTO) 0.8 (0.2-0.8); MONOCYTES % 8.1 % (4.4-11.3); NEUTROPHILS # (AUTO) 7.3 (2.1-6.9); NEUTROPHILS % 74.7 % (38.7-80.0); PLATELET COUNT 306 x10e3/uL (140-360); RED BLOOD COUNT 3.72 x10e6/uL (3.6-5.1); RED CELL DISTRIBUTION WIDTH 14.3 % (11.7-14.4)
[2019-09-07 07:41] LABS: ALANINE AMINOTRANSFERASE 21 IU/L (0-55); ALBUMIN/GLOBULIN RATIO 1.3 (0.8-2.0); ALKALINE PHOSPHATASE 64 IU/L (40-150); BLOOD UREA NITROGEN 11 mg/dL (7-26); BUN/CREATININE RATIO 12 (6-25); CALCIUM 8.8 mg/dL (8.4-10.2); CARBON DIOXIDE 28 mmol/L (22-29); CHLORIDE 103 mmol/L (98-107); CREATININE, SERUM 0.94 mg/dL (0.57-1.11); EST GLOMERULAR FILTRATION RATE > 60 ML/MIN (60-); GLUCOSE 110 mg/dL (74-118); MAGNESIUM 1.8 MG/DL (1.3-2.1); SODIUM 142 mmol/L (136-145)
[2019-09-07] MEDS: DOCUSATE SODIUM 100 MG CAP PO SCH (08:13)
[2019-09-07] MEDS: FAMOTIDINE 20 MG TAB PO SCH ×2 (08:13→16:40)
[2019-09-07] MEDS: SENNA-S TABLET PO SCH ×2 (08:13→16:40)
[2019-09-07] MEDS: MULTIVITAMINS/MINERALS TAB PO SCH (08:13)
[2019-09-07 08:38] LABS: CREATINE KINASE MB 5.5 ng/mL (0-5.0)
--- NOTE | 2019-09-07 12:19 | NUR ---
patient resting in bed, Alert with no distress, encouraged her to use call light for assistance, bed alarm ON
[2019-09-07 16:16] LABS: CREATINE KINASE MB 4.9 ng/mL (0-5.0)
--- NOTE | 2019-09-07 18:59 | NUR ---
Received report from previous nurse. call light within reach. Patient in bed.
--- NOTE | 2019-09-07 19:59 | NUR ---
Called and talked to Dr. Arias about patient wanting something for pain. Dr. Arias ordered morphine sulfate for the patient.
[2019-09-08] VITALS (10 sets, daily range): BP systolic 113–144; BP diastolic 62–88
[2019-09-08] MEDS: PROMETHAZINE 12.5MG/ NACL 0.9% 12.5 MG/50 ML BAG IV PRN ×2 (01:19→14:30)
[2019-09-08] MEDS: MORPHINE SULFATE 2 MG/ML SYR 1ML IV PRN ×4 (03:24→23:55)
[2019-09-08] MEDS: ONDANSETRON HCL INJ 2MG/ML 2ML 2 MG/ML VIAL IV PRN ×3 (03:24→23:55)
[2019-09-08] MEDS: SODIUM CHLORIDE 0.9% 1000ML 1,000 ML IV SCH ×7 (03:24→22:49)
--- NOTE | 2019-09-08 06:10 | NUR ---
IM- progress note O/N no events ROS: unreliable v/s; revd PE tired appearing anicteric ns1s2 mod bs soft nd; epigastrium tender no e/t skin dry awake; swenson labs/med revd A/P: KAVIN Cocaine intoxication Acute gastroenteritis Hypokalemia GERD Constipation Acute rhabdomyolysis PLAN IVF; SW for resources Flagyl; Replace lytes Follow CPK SCD; pepcid 09/08 bolus fluids; check CPK and K Tony Arias MD, PhD.
[2019-09-08] MEDS ORDERED: SODIUM CHLORIDE 0.9% 1000ML 1,000 ML IV ONE (06:45)
--- NOTE | 2019-09-08 07:00 | NUR ---
received am report and rounds done. pt is sleeping, no s/s of distress. call light within reach and bed safety is implemented
[2019-09-08 07:18] LABS: POTASSIUM 3.1 mmol/L (3.5-5.1)
--- NOTE | 2019-09-08 07:23 | NUR ---
Gave report to oncoming nurse. call light within reach. patient in bed.
[2019-09-08] MEDS: FAMOTIDINE 20 MG TAB PO SCH ×2 (09:00→17:00)
[2019-09-08] MEDS: MULTIVITAMINS/MINERALS TAB PO SCH (09:00)
[2019-09-08] MEDS: DOCUSATE SODIUM 100 MG CAP PO SCH (09:00)
[2019-09-08] MEDS: SENNA-S TABLET PO SCH ×2 (09:00→17:00)
--- NOTE | 2019-09-08 09:30 | NUR ---
PT REFUSED MORNING MEDICATIONS, PT STATED THAT SHE FEELS NAUSEATED AND SHE WON'T BE ABLE TO TAKE THEM
--- NOTE | 2019-09-08 13:12 | NUR ---
SPOKE WITH PT ABOUT RESOURCES, PROVIDED 2 PAGES OF RESOURCES FOR IN/OUT AND MEETINGS FOR DRUG AND ALCOHOL REHAB FOR REVIEW AND FOLLOW UP WITH IN THE COMMUNITY.
--- NOTE | 2019-09-08 13:16 | NUR ---
transportation is at the bedside to take the pt for [facility]
--- NOTE | 2019-09-08 14:10 | Diagnostic Imaging Report ---
Exam: [facility] - 2 views Indication: Abdominal Pain Comparison: CT abdomen and pelvis of 09/06/2019 Findings: Nonobstructive bowel gas pattern. No free air. Status post cholecystectomy. No abnormal calcifications. The osseous structures appear unremarkable. The lung bases appear clear. Impression: No acute radiographic abnormality. Signed by: Jadiel Reno MD on 09/08/2019 2:06 PM
[2019-09-08] MEDS ORDERED: POTASSIUM CHLORIDE 20 MEQ TAB CR PO ONE (16:52)
--- NOTE | 2019-09-08 21:30 | NUR ---
PATIENT RESTING IN BED BOTH EYES CLOSED, NO SIGNS OF DISTRESS NOTED. PATIENT VOICED THAT SHE WANTED TO TAKE SHOWER AND IV PUMP WAS DISCONNECTED EARLIER. PATIENT VOICED PAIN AT A LEVEL OF 10 AND WILL BE MEDICATED PROMPTLY. BED IS IN LOWEST POSITION POSSIBLE, BOTH SIDE RAILS ARE UP, CALL LIGHT WITHIN EASY REACH, WILL CONTINUE TO MONITOR.
--- NOTE | 2019-09-09 | NUR ---
PATIENT'S IV BECAME INFILTRATED, ATTEMPTED TO START A NEW SITE IN TO NEW AREAS AND WAS UNSUCCESSFUL. A NEW SITE WAS STARTED BY ER NURSE IN THE LEFT HAND 20 GAUGE.
[2019-09-09 04:00] VITALS: BP 140/70
[2019-09-09] MEDS: MORPHINE SULFATE 2 MG/ML SYR 1ML IV PRN (06:10)
[2019-09-09] MEDS: ONDANSETRON HCL INJ 2MG/ML 2ML 2 MG/ML VIAL IV PRN (06:10)
--- NOTE | 2019-09-09 06:12 | NUR ---
D/C summary Principal Dx: KAVIN Cocaine intoxication Acute gastroenteritis Hypokalemia GERD Constipation Acute rhabdomyolysis Secondary Dx: GERD SUbstance abuse PLAN IVF; SW for resources Flagyl; Replace lytes Follow CPK SCD; pepcid 09/08 bolus fluids; check CPK and K 09/09 check labs; d/c planning; CPK improving with fluids; renal fn improving; Hypokalemia- replaced d/c home f/u pcp 1 week stable d/c>35mins Tony Arias MD, PhD.
--- NOTE | 2019-09-09 07:00 | NUR ---
RECEIVED AM REPORT AND ROUNDS DONE. PT IS ALERT OOB HOPPING IN PLACE. NO S/S OF DISTRESS. CALL LIGHT IS ACCESSIBLE, INSTRUCTED PT TO CALL RN FOR HELP
[2019-09-09 07:14] LABS: BASOPHILS % 0.4 % (0.0-1.0); EOSINOPHILS % 0.3 % (0.0-6.0); HEMATOCRIT 33.6 % (34.2-44.1); HEMOGLOBIN 11.1 g/dL (12.0-16.0); LYMPHOCYTES # (AUTO) 1.9 (1.0-3.2); LYMPHOCYTES % 24.9 % (18.0-39.1); MEAN CORPUSCULAR HEMOGLOBIN 29.2 pg (28-32); MEAN CORPUSCULAR VOLUME 88.4 fL (81-99); MONOCYTES # (AUTO) 0.7 (0.2-0.8); MONOCYTES % 8.5 % (4.4-11.3); NEUTROPHILS % 65.5 % (38.7-80.0); PLATELET COUNT 321 x10e3/uL (140-360)
[2019-09-09 07:41] LABS: ANION GAP 13.4 mmol/L (8-16); BLOOD UREA NITROGEN 5 mg/dL (7-26); BUN/CREATININE RATIO 5 (6-25); CALCIUM 9.2 mg/dL (8.4-10.2); CARBON DIOXIDE 23 mmol/L (22-29); CHLORIDE 104 mmol/L (98-107); CREATININE, SERUM 0.94 mg/dL (0.57-1.11); EST GLOMERULAR FILTRATION RATE > 60 ML/MIN (60-); GLUCOSE 116 mg/dL (74-118); POTASSIUM 3.4 mmol/L (3.5-5.1); SODIUM 137 mmol/L (136-145)
[2019-09-09 07:44] LABS: MAGNESIUM 1.7 MG/DL (1.3-2.1); PHOSPHORUS 2.6 MG/DL (2.3-4.7)
[2019-09-09 07:54] VITALS: BP 151/86
[2019-09-09] MEDS ORDERED: PANTOPRAZOLE SOD 40 MG TABEC PO SCH (09:00)
[2019-09-09] MEDS: FAMOTIDINE 20 MG TAB PO SCH (09:09)
[2019-09-09] MEDS: DOCUSATE SODIUM 100 MG CAP PO SCH (09:09)
[2019-09-09] MEDS: SENNA-S TABLET PO SCH (09:09)
[2019-09-09] MEDS: MULTIVITAMINS/MINERALS TAB PO SCH (09:09)
[2019-09-09] MEDS ORDERED: POTASSIUM CHLORIDE 20 MEQ TAB CR PO ONE (09:30)
--- NOTE | 2019-09-09 09:35 | NUR ---
WENT IN TO GIVE PT AM MEDS, AND TOLD PT THAT SHE IS BEING DISCHARGED. PT STATED THAT SHE FEELS THAT SHE IS NOT WELL ENOUGH TO GO HOME AND WOULD LIKE TO TALK TO DR. HILL. I INFORMED THE PT THAT SHE WOULD NOT BE GOING HOME IF SHE WAS NOT STABLE AND THAT DR HILL WOULD CALL IN PRESCRIPTIONS FOR HER SYMPTOMS. I ESCALATED THE ISSUE TO THE ROTARY RIG ENGINE OPERATOR AND TIA WENT TO SPEAK WITH THE PT.
--- NOTE | 2019-09-09 11:11 | NUR ---
CM MET W THE PT AT THE BEDSIDE TO DISCUSS DC HOME TODAY. PT STATES SHE WANTED TO FILE A GRIEVANCE, BECAUSE SHE FELT SHE WAS BEING MISTREATED. DISCUSSED EVENTS FROM LAST NIGHT; FLOODING OF THE RR AND THE ICU ROOM ON THE 1ST FLOOR. CM OFFERED TO ASSIST W REHAB FOR DRUG USE. STATES SHE ONLY SMOKES WEED DAILY AND HAS NOT USED COCAINE IN 2 YRS. CM INFORMED PT OF UDS + FOR TCH AND COCAINE. PT INSISTS SHE DOES NOT NEED HELP FOR DRUGS. STATES SHE HAS 2 CHILDREN AND NO OTHER FAMILY. STATES SHE WAS ADOPTED AND HER FAMILY IS ESTRANGED FROM HER AND LIVE IN [place]. [facility] [facility] [facility] SHE HAD A CPS CASE FOR HER YOUNGEST BABY BECAUSE THE TESTED + FOR MARIJUANA, BUT HER CASE HAS SINCE BEEN DROPPED. STATES SHE LIVES W AN OLDER LADY FRIEND W HER 2 KIDS. STATES THE ELDEST IS W HER FATHER AND THE BABY IS W THE FRIEND. THE YOUNGEST FATHER IS IN [place]. STATES SHE WILL CALL FOR A RIDE HOME. CM INFORMED SHE WILL F/U TO ARRANGE TRANSPORT HOME IF NEEDED.
--- NOTE | 2019-09-09 12:26 | NUR ---
cab is at the front entrance to bulk picker the patient and take her to her residence. tech will take the pt to the front entrance
--- NOTE | 2019-09-09 12:39 | NUR ---
the cab arrived, went to inform the pt and she was in the shower and her personal belongings were scattered in the room. the pt stated that she "didn't know the cab would be here that fast". informed prefabricated houses trimmer.
--- NOTE | 2019-09-09 13:09 | NUR ---
the pt was asked multiple times to provide the nurse with her pharmacy information. the pt stated that she did not have a pharmacy that she uses. RN asked the pt to lookup the closest pharmacy to her house and provide that information. pt failed to provide nurse with that information.
== END 2019-09-09 12:56 | disposition home or self-care (01) | DRG 683 ==
LOC: FSED 14:04 → ERHOLD 17:11 → MED/SURG3 19:58
PROVIDERS: ADMIT Internal Medicine; ATTEND Internal Medicine
DX: N17.9 Acute kidney failure, unspecified (principal); M62.82 Rhabdomyolysis; F14.129 Cocaine abuse with intoxication, unspecified; K52.9 Noninfective gastroenteritis and colitis, unspecified; E87.6 Hypokalemia; K59.00 Constipation, unspecified; K21.0 Gastro-esophageal reflux disease with esophagitis; F17.210 Nicotine dependence, cigarettes, uncomplicated; F12.10 Cannabis abuse, uncomplicated
CPT/HCPCS: 36415; 74018; 74176; 80048; 80053; 81025; 82550; 82553; 83735; 84100; 84132; 84484; 85025; 96374; 99284; J2270; J2405; J2550; J7030